=== PATIENT | male | born 1950 | race Two or more races ===

== ENCOUNTER 2018-10-05 22:51 | Inpatient (IN) | payer MEDICARE, MEDICAID ==
[~2018-10-05] VITALS: Ht 177.8 cm; Wt 74.8 kg
--- NOTE | 2018-10-06 00:20 | NUR ---
RN TRAVELING ADMISSION NOTES RECEIVED PATIENT DIRECT ADMIT FROM [facility] VIA [employer]. DX: HYPERKALEMIA. PATIENT IS ALERT AND ORIENTED X3, VERBALLY RESPONSIVE, ABLE TO MAKE NEEDS KNOWN. BREATHING EVEN AND UNLABORED. NO SOB NOTED. ON 2LPM OXYGEN FOR SUPPLEMENT. PER REPORT, PATIENT IS AMBULATORY BUT VERY UNSTEADY, NEEDS ASSISTANCE. URINAL KEPT AT BEDSIDE. CURRENTLY WITH NO COMPLAINTS OF PAIN OR DISCOMFORT. NO FACIAL GRIMACING. IV ON RIGHT FOREARM INTACT AND PATENT. PATIENT NOTED WITH LEFT FOREARM FISTULA - INTACT. SKIN DRY AND WARM TO TOUCH. AFEBRILE. ORIENTED TO THE USE OF UNIT AMENITIES. INSTRUCTED ON THE USE OF CALL LIGHT. INFORMED OF SKIN ASSESSMENT AND PICTURES - AGREED. BELONGINGS ACCOUNTED FOR. ALL OTHER NEEDS MET. SAFETY MEASURES IN PLACE. WILL CONTINUE TO MONITOR.
[2018-10-06 01:00] VITALS: BP 136/75
--- NOTE | 2018-10-06 01:00 | NUR ---
PUBLIC SAFETY TELECOMMUNICATOR NOTES RN AND VISHNU HERBERT HAD DIFFICULTY TURNING PATIENT FOR SKIN ASSESSMENT AND PICTURES DUE TO PATIENT FEELING "WEAK AND TIRED." ALL PICTURES ARE TO PATIENT'S BEST ABILITY.
--- NOTE | 2018-10-06 01:00 | NUR ---
SALES AND SERVICE REPRESENTATIVE NOTES PER PATIENT, HE DOES NOT REMEMBER WHAT MEDICATIONS HE TAKES. HE JUST KNOWS THEY ARE FOR HIS "DIALYSIS" AND BLOOD PRESSURE. PER PATIENT WE CAN ASK HIS . OFFERED TO CALL BUT PER PATIENT, "CALL HER TOMORROW, ITS ALREADY LATE."
--- NOTE | 2018-10-06 01:19 | NUR ---
DRIVING TEACHER NOTES YAZAN HUMPHREY MADE AWARE OF ADMISSION. ALSO INFORMED YAZAN MCCORD THAT PATIENT DOES NOT REMEMBER HIS HOME MEDICATIONS. BS WAS CHECKED = 57. YAZAN MCCORD MADE AWARE AND PER YAZAN MCCORD, HE WILL PUT IN ORDERS. WILL CONTINUE TO MONITOR. Addendum: 10/06/18 at 0138 by LARISSA DYE RN YAZAN MCCORD GAVE VERBAL ORDER TO GIVE D50 IV NOW. WILL CONTINUE TO MONITOR.
[2018-10-06] MEDS ORDERED: MAGNESIUM HYDROXIDE 30 ML UDC PO PRN (01:30)
[2018-10-06] MEDS ORDERED: Z GUARD REMEDY 2 OZ OINT TP PRN (01:30)
[2018-10-06] MEDS ORDERED: DEXTROSE 50%-WATER 50 ML DISP.SYRIN IV PRN (01:30)
[2018-10-06] MEDS ORDERED: MAG HYDROX/AL HYDROX/SIMETH 30 ML UDC PO PRN (01:30)
[2018-10-06] MEDS ORDERED: ACETAMINOPHEN 325 MG TABLET PO PRN (01:30)
[2018-10-06] MEDS ORDERED: ONDANSETRON HCL/PF 4 MG/2 ML VIAL IVP PRN (01:30)
[2018-10-06] MEDS ORDERED: INSULIN REGULAR, HUMAN 100 UNIT/ML 3 ML VIAL SQ PRN (01:30)
[2018-10-06] MEDS ORDERED: DEXTROSE 10% IN WATER 250 ML BAG IV ONE (01:32)
--- NOTE | 2018-10-06 02:00 | NUR ---
CHILDREN LIBRARIAN NOTES PATIENT'S BLOOD SUGAR NOW 81 AFTER D50. PATIENT IS EATING CRACKERS. WILL CONTINUE TO MONITOR.
[2018-10-06 02:21] LABS: BASOPHILS # (AUTO) 0.1 /CMM (0.0-0.2); BASOPHILS % (AUTO) 0.9 % (0.0-2.0); EOSINOPHILS % (AUTO) 0.5 % (0.0-6.0); HEMATOCRIT 35 % (39-51); HEMOGLOBIN 11.3 g/dL (13.5-17.5); LYMPHOCYTES # (AUTO) 0.9 /CMM (0.8-4.8); LYMPHOCYTES % (AUTO) 10.2 % (20.0-44.0); MEAN CORPUSCULAR HGB CONC 32 g/dl (31.0-36.0); MEAN CORPUSCULAR VOLUME 98 fL (80-96); MONOCYTES # (AUTO) 0.7 /CMM (0.1-1.30); MONOCYTES % (AUTO) 8.3 % (2.0-12.0); NEUTROPHILS # (AUTO) 6.9 /CMM (1.8-8.9); NEUTROPHILS % (AUTO) 80.1 % (43.0-81.0); PLATELET COUNT (AUTO) 198 /CMM (150-450); RED BLOOD CELL COUNT(AUTO) 3.59 MIL/uL (4.5-6.0); WHITE BLOOD COUNT (AUTO) 8.6 K/uL (4.3-11.0)
[2018-10-06 02:39] LABS: ALBUMIN 1.5 g/dL (3.4-5.0); BILIRUBIN,DIRECT 0.1 mg/dL (0.0-0.2); BILIRUBIN,TOTAL 0.5 mg/dL (0.2-1.0); CALCIUM, SERUM 8.2 mg/dL (8.5-10.1); POTASSIUM 5.9 mmol/L (3.5-5.1); TOTAL PROTEIN, SERUM 5.5 g/dL (6.4-8.2)
[2018-10-06 02:41] LABS: THYROID STIMULATING HORMONE 12.484 uIU/mL (0.358-3.74)
[2018-10-06 02:44] LABS: CREATININE 12.3 mg/dL (0.6-1.3)
[2018-10-06 02:45] LABS: PHOSPHORUS 9.8 mg/dL (2.5-4.9)
--- NOTE | 2018-10-06 02:55 | NUR ---
MARGARITA MS NOTES PAGED SCHOOL EXAMINER FLEX HUMPHREY TO RELAY CRITICAL RESULTS FOR BUN CREATININE AND PHOS. WAITING FOR CALL BACK. Addendum: 10/06/18 at 0259 by LARISSA DYE RN ERROR: PATIENT IS TELE.
--- NOTE | 2018-10-06 03:20 | NUR ---
JOURNEYMAN GLAZIER NOTES REHABILITATION TEACHER FLEX PAGED BACK. INFORMED OF POTASSIUM, BUN, CREATININE, AND PHOSPHORUS LEVELS. ALSO INFORMED THE BLOOD SUGAR IMPROVED. PER YAZAN MCCORD, NO NEW ORDERS AT THIS TIME. WILL CONTINUE TO MONITOR.
[2018-10-06] MEDS: HYDROCODONE/APAP 5/325MG 1 EACH TABLET PO PRN ×2 (03:48→18:38)
[2018-10-06 04:15] VITALS: BP 132/80
[2018-10-06] MEDS: BLOOD SUGAR DIAGNOSTIC 1 EACH STRIP IN SCH ×4 (06:32→22:12)
--- NOTE | 2018-10-06 06:59 | NUR ---
INDUSTRIAL HYGIENE MANAGER CLOSING NOTES PATIENT RESTING IN BED. NO ACUTE CHANGES THROUGHOUT SHIFT. BREATHING EVEN AND UNLABORED. NO SOB NOTED. ON 2LPM VIA NC. SR 69 ON TELE. CURRENTLY WITH NO COMPLAINTS OF PAIN OR DISCOMFORT. KEPT CLEAN DRY AND COMFORTABLE. ASSISTED WITH REPOSITIONING. ALL OTHER NEEDS MET. SAFETY MEASURES IN PLACE. CALL LIGHT WITHIN REACH. WILL ENDORSE TO ONCOMING NURSE FOR LULI.
--- NOTE | 2018-10-06 07:24 | NUR ---
IRONING PLEATER NOTES CALLED , TRACE, AND LEFT VOICEMAIL TO BRING HOME MEDICATIONS.
--- NOTE | 2018-10-06 07:46 | NUR ---
RN OPENING NOTES RECEIVED PATIENT IN BED RESTING. A/OX3, ABLE TO MAKE NEEDS KNOWN. NOT IN ANY FORM OF DISTRESS, NO SOB. DENIED PAIN OR DISCOMFORT AT THIS TIME. ON TELE SR 69. IV ACCESS INTACT AND PATENT, SALINE LOCKED. KEPT PATIENT SAFE AND COMFORTBALE. BED IN LOW/LOCKED POSITION, SIDERAILS UPX2, CALL LIGHT IN REACH. WILL CONTINUE TO MONITOR ACCORDINGLY.
[2018-10-06] MEDS ORDERED: NIFE90TA38 PO (08:35)
[2018-10-06] MEDS ORDERED: LEVO25TA9 PO (08:35)
[2018-10-06 08:44] VITALS: BP 138/98
--- NOTE | 2018-10-06 09:44 | NUR ---
WOUND CARE CONSULT: PT PRESENTS WITH SACRAL SCAR AND SKIN STAINING/DISCOLORATION TO BUTTOCKS, RT HEEL INTACT DEEP TISSUE INJURY AND LEFT HEEL SCAR WITH SCARRING TO ANKLE, PRESENT ON ADMISSION. RECOMMEND DPM CONSULT. DR MORE NOTIFIED OF CONSULT REQUEST. RECOMMENDATIONS MADE FOR SKIN PROTECTION. DISCUSSED WITH NURSING STAFF. DEFER TO DPM FOR WOUND TREATMENT PLAN OF LOWER EXTREMITIES. WILL SEE PRN. CURRENT SIMRAN SCORE IS 15. PT IS VERY THIN AND BONY. IN AGREEMENT WITH PLAN OF CARE. Addendum: 10/06/18 at 0948 by MIRIAN DAVILA WNDNU Amended: Links added.
[2018-10-06] MEDS: HYDROCODONE/APAP 10/325MG 1 EA TABLET PO PRN ×3 (09:46→22:11)
[2018-10-06] MEDS ORDERED: SODIUM POLYSTYRENE SULFONATE 15 G/60 ML BOTTLE PO ONE (10:30)
[2018-10-06] MEDS: LEVOTHYROXINE SODIUM 25 MCG TABLET PO SCH (11:37)
[2018-10-06] MEDS: SEVELAMER CARBONATE 0.8 GM POWD.PACK PO SCH ×2 (12:37→18:03)
[2018-10-06] MEDS ORDERED: BUME1TAB8 PO (14:59)
[2018-10-06] MEDS ORDERED: LOSA100T31 PO (14:59)
[2018-10-06] MEDS ORDERED: SEVE800T8 PO (14:59)
[2018-10-06] MEDS ORDERED: TERA2CAP4 PO (14:59)
[2018-10-06] MEDS ORDERED: AMLO10TA4 PO (14:59)
[2018-10-06] MEDS ORDERED: PARO20TA7 PO (14:59)
[2018-10-06] MEDS ORDERED: CLON0.5T12 PO (14:59)
[2018-10-06] MEDS ORDERED: ASPI-605 PO (14:59)
[2018-10-06] MEDS ORDERED: HYDR-4384 PO (15:01)
[2018-10-06] MEDS ORDERED: PANT40TA4 PO (15:01)
--- NOTE | 2018-10-06 17:00 | NUR ---
HEMODIALYSIS DONE, 1.5 L OUTPUT, PATIENT TOLERATED WELL.
[2018-10-06 18:00] VITALS: BP 129/87
--- NOTE | 2018-10-06 18:38 | NUR ---
MS RN NOTE ADMINISTERED NORCO 5-325MG ORDERED FOR PAIN 7/10 OF THE LEFT SHOULDER. BP 138/65, HR 84.
--- NOTE | 2018-10-06 19:00 | NUR ---
RN CLOSING NOTES PATIENT IN STABLE CONDITION. ALL NEEDS ATTENDED AND PROVIDED. ALL DUE MEDICATIONS ADMINISTERED ORDERED. ASSISTED WITH ADLS. KEPT PATIENT SAFE AND COMFORTABLE. BED IN LOW/LOCKED POSITION, SIDERAILS UPX2, CALL LIGHT IN REACH. ENDORSED TO NIGHT RN FOR LULI.
--- NOTE | 2018-10-06 19:30 | NUR ---
TELERN FULLY AWAKE, RESTING QUIETLY, LESS PAIN ON SHOULDERS FROM NORCO GIVEN EARLIER. BEDREST FOR NOW. REMINDED TO CALL STAFF FOR ANY ASSISTANCE OF FURTHER DISCOMFORT, CALL LIGHT WITHIN REACH. SAFETY PRECAUTIONS EMPHASIZED, APPEARS TO UNDERSTAND.
[2018-10-06 20:00] VITALS: BP 142/83
--- NOTE | 2018-10-06 20:39 | NUR ---
TELERN FULLY AWAKE, ARTERIAL DOPPLER TEST ON PROGRESS. TO CONTINUE.
[2018-10-06 20:44] VITALS: BP 142/83
[2018-10-06] MEDS: TERAZOSIN HCL 1 MG CAPSULE PO SCH (22:01)
--- NOTE | 2018-10-06 22:30 | NUR ---
TELERN BS 102, NO COVERAGE. SNACKS PROVIDED. WAS VERBALIZING PAIN ON RIGHT SHOULDER, STATED ARTHRITIC PAIN, NORCO 1 TAB PO ADMINISTERED ORDERED. BEDREST FOR NOW.
[2018-10-07] VITALS: BP_SYST 132; BP_DIAS 77; BP_DIAS 88
[2018-10-07 04:00] VITALS: BP 141/82
[2018-10-07] MEDS: BLOOD SUGAR DIAGNOSTIC 1 EACH STRIP IN SCH ×4 (06:08→22:34)
--- NOTE | 2018-10-07 07:00 | NUR ---
TELERN BS WAS 57. ENDORSED TO INCOMING RN FOR CONTINUITY OF CARE
--- NOTE | 2018-10-07 07:15 | NUR ---
RN INITIAL NOTES PATIENT IN BED, ASLEEP BUT EASILY AROUSABLE. ALERT AND ORIENTED X3. ON TELE MONITOR SR. ON ROOM AIR, NO COMPLAINS OF ANY SOB NOR PAIN. HAS A RIGHT FA #20 AND LEFT FA FISTULA. HD YESTERDAY 1.5L OUT. PER NOC SHIFT RN, BS IS 57 THIS AM. PATIENT WAS GIVEN ORANGE JUICE, WILL RECHECK AGAIN LATER. PENDING XRAY OF BILATERAL FEET TODAY AND CONSULT FROM DR ULI BAH. BED LOCKED AND IN LOWEST POSITION. CALL LIGHT WITHIN REACH. WILL CONTINUE TO MONITOR CLOSELY
[2018-10-07 07:53] LABS: BASOPHILS % (AUTO) 0.4 % (0.0-2.0); EOSINOPHILS % (AUTO) 0.8 % (0.0-6.0); HEMATOCRIT 35 % (39-51); HEMOGLOBIN 11.2 g/dL (13.5-17.5); LYMPHOCYTES # (AUTO) 0.7 /CMM (0.8-4.8); LYMPHOCYTES % (AUTO) 7.2 % (20.0-44.0); MEAN CORPUSCULAR HGB CONC 32 g/dl (31.0-36.0); MEAN CORPUSCULAR VOLUME 99 fL (80-96); MONOCYTES # (AUTO) 0.6 /CMM (0.1-1.30); MONOCYTES % (AUTO) 6.9 % (2.0-12.0); NEUTROPHILS # (AUTO) 7.7 /CMM (1.8-8.9); NEUTROPHILS % (AUTO) 84.7 % (43.0-81.0); PLATELET COUNT (AUTO) 156 /CMM (150-450); RED BLOOD CELL COUNT(AUTO) 3.56 MIL/uL (4.5-6.0); WHITE BLOOD COUNT (AUTO) 9.1 K/uL (4.3-11.0)
[2018-10-07 08:00] VITALS: BP 131/63
[2018-10-07] MEDS: LEVOTHYROXINE SODIUM 25 MCG TABLET PO SCH (08:01)
[2018-10-07] MEDS: SEVELAMER CARBONATE 0.8 GM POWD.PACK PO SCH ×4 (08:01→17:48)
[2018-10-07 08:10] LABS: CALCIUM, SERUM 8.2 mg/dL (8.5-10.1); POTASSIUM 5.4 mmol/L (3.5-5.1)
[2018-10-07 08:16] LABS: CREATININE 10.7 mg/dL (0.6-1.3)
[2018-10-07] MEDS: BUMETANIDE (1 MG) 1 MG TABLET PO SCH ×2 (08:27→17:45)
[2018-10-07] MEDS: LOSARTAN POTASSIUM 50 MG TABLET PO SCH (08:27)
[2018-10-07] MEDS: AMLODIPINE BESYLATE 10 MG TABLET PO SCH (08:28)
[2018-10-07] MEDS: NIFEdipine XL (30MG) 30 MG TAB PO SCH (08:28)
[2018-10-07] MEDS: clonazePAM 0.5 MG TABLET PO SCH ×2 (08:28→17:45)
[2018-10-07] MEDS: DAKINS QUARTER STRENGTH (0.125%) 480 ML BOTTLE TOP SCH (08:29)
[2018-10-07] MEDS ORDERED: ASPIRIN EC 81 MG TABLET.DR PO SCH (09:00)
[2018-10-07] MEDS ORDERED: PAROXETINE HCL 20 MG TABLET PO SCH (09:00)
[2018-10-07] MEDS: HYDROCODONE/APAP 10/325MG 1 EA TABLET PO PRN ×2 (10:53→16:04)
[2018-10-07] MEDS ORDERED: LEVOFLOXACIN (500MG) 500 MG TABLET PO SCH (12:00)
--- NOTE | 2018-10-07 12:30 | NUR ---
RN NOTES HEMODIALYSIS AT THIS TIME
--- NOTE | 2018-10-07 13:53 | NUR ---
RN NOTES PATIENT WAS SEEN BY PT. PER PT, PATIENT REFUSED TO TAKE A FEW STEPS AND JUST SAT AT THE EDGE OF THE BED Addendum: 10/07/18 at 1355 by LEMUEL MUNIZ RN PT AT 1030
[2018-10-07 16:00] VITALS: BP 87/67
--- NOTE | 2018-10-07 16:00 | NUR ---
RN NOTES PATIENT REFUSED TO HAVE HIS WOUND CARE DONE.
--- NOTE | 2018-10-07 19:05 | NUR ---
MS RN NOTES RECEIVED PT IN BED AWAKE AND ABLE TO MAKE NEEDS KNOWN. PT A/O X3. RESPIRATIONS EVEN AND UNLABORED WITH NO S/S OF ACUTE DISTRESS OR SOB NOTED. PT WITH RIGHT FA #20 PATENT AND INTACT AND LEFT FA FISTULA. NO COMPLAINTS OF PAIN AT THIS TIME. SAFETY MEASURES IN PLACE WITH BED IN LOWEST LOCKED POSITION WITH SIDE RAILS UP X2. CALL LIGHT WITHIN REACH. WILL CONTINUE TO MONITOR.
--- NOTE | 2018-10-07 19:40 | NUR ---
RN CLOSING NOTES PATIENT IN BED, ASLEEP BUT EASILY AROUSABLE. TOOK ALL HIS MEDS. DIALYSIS TODAY, NO OUTPUT. AFEBRILE THROUGHOUT THE SHIFT. DAUGHTER AND CAME TO VISIT AND WANTED TO TALK TO THE COLOR FINISHER. COMPLAINED OF RIGHT SHOULDER PAIN TODAY. LAST NORCO GIVEN AT 1600. PT REFUSED TO HAVE HIS WOUND CARE DONE. PATIENT SAT ON THE CHAIR WITH THE HELP OF THE ICE MAKER. ENDORSED TO NOC SHIFT FOR LULI
[2018-10-07 20:00] VITALS: BP_SYST 113; BP_SYST 95; BP_DIAS 42; BP_DIAS 76
[2018-10-07 20:34] VITALS: BP_SYST 113; BP_SYST 115; BP_DIAS 72; BP_DIAS 76
[2018-10-07] MEDS: TERAZOSIN HCL 1 MG CAPSULE PO SCH (22:35)
[2018-10-08] VITALS (41 sets, daily range): BP systolic 96–135; BP diastolic 48–76
[2018-10-08] MEDS: HYDROCODONE/APAP 10/325MG 1 EA TABLET PO PRN (02:19)
--- NOTE | 2018-10-08 06:50 | NUR ---
RT CODE BLUE CALLED. BEGAN MANUALLY BAGGING WITH 100% FiO2. PT INTUBATED BY DR. BROCK WITH 7.0 ETT SECURED AT 23CM AT THE LIP. POSITIVE COLOR CHANGE. BILATERAL BREATH SOUNDS ON AUSCULTATION. NO SIGNS OF DISTRESS NOTED AT THIS TIME. WILL CONTINUE TO MONITOR THE PATIENT.
--- NOTE | 2018-10-08 07:00 | NUR ---
MS RN NOTES PT TRANSFERRED TO ICU ROOM 258 REPORT GIVEN TO NURSE AT BEDSIDE.
[2018-10-08] MEDS: BLOOD SUGAR DIAGNOSTIC 1 EACH STRIP IN SCH ×4 (07:54→23:49)
[2018-10-08] MEDS ORDERED: IV D5W 1,000 ML IV ONE (08:00)
[2018-10-08] MEDS: SEVELAMER CARBONATE 0.8 GM POWD.PACK PO SCH ×3 (08:02→17:28)
[2018-10-08] MEDS: LEVOTHYROXINE SODIUM 25 MCG TABLET PO SCH (08:02)
[2018-10-08] MEDS: BUMETANIDE (1 MG) 1 MG TABLET PO SCH ×2 (08:03→17:28)
[2018-10-08 08:12] LABS: CALCIUM, SERUM 7.8 mg/dL (8.5-10.1); POTASSIUM 5.1 mmol/L (3.5-5.1)
[2018-10-08] MEDS: ASPIRIN 81 MG TAB.CHEW PO SCH (08:15)
[2018-10-08 08:17] LABS: CREATININE 8.8 mg/dL (0.6-1.3)
[2018-10-08 08:34] LABS: ABG BASE EXCESS 1.5 mmol/L; ABG OXYGEN SATURATION 96.8 % (92.0-98.5); ABG PH 7.346 (7.350-7.450); ABG PO2 104.4 mmHg (75.0-100.0); AaDO2 556.6 mmHg; COHb 0.5 % (0.5-1.5); MetHb 0.7 % (0.0-1.5); O2Hb 95.6 % (94.0-97.0); PEEP,BG 0 cm H2O; SITE, ABG Right Brachial; VT, ABG 500 mL
--- NOTE | 2018-10-08 08:48 | NUR ---
notified dr ga of patient troponin. per md please start patient on heparin gtt
[2018-10-08] MEDS: NIFEdipine XL (30MG) 30 MG TAB PO SCH (08:49)
[2018-10-08] MEDS: AMLODIPINE BESYLATE 10 MG TABLET PO SCH (08:49)
[2018-10-08] MEDS: clonazePAM 0.5 MG TABLET PO SCH (08:51)
--- NOTE | 2018-10-08 08:54 | NUR ---
DR HORVATH AT BEDSIDE. PATIENT AWAKE AND ALERT FOLLOWING COMMANDS. MD SHOWN ABG. PER MD PLEASE TITRATE FIO2 TO 50% AND HOLD OFF ON SEDATION AT THIS TIME PATIENT IS CLAM AND COOPERATIVE
[2018-10-08] MEDS: LOSARTAN POTASSIUM 50 MG TABLET PO SCH (09:00)
--- NOTE | 2018-10-08 09:12 | NUR ---
MS RN NOTES 0600 - PTS VITALS CHECKED AND IN STABLE CONDITION 0634 - WALK TO PT AND PT FOUND UNRESPONSIVE WITH NO PULSE GREY IRON MOLDER NOTIFIED CHARGE NURSE 0635 - CODE BLUE CALLED CPR STARTED 0640 - RAPID RESPONSE TEAM ARRIVED AND TOOK OVER 0643 - BLOOD SUGAR CHECK - 19 0644 - D50 GIVEN VIA IV 0648 - BS RECHECK 104 0650 - PT TRANSFERRED TO ICU 258
[2018-10-08] MEDS: DAKINS QUARTER STRENGTH (0.125%) 480 ML BOTTLE TOP SCH (09:23)
[2018-10-08] MEDS ORDERED: HEPARIN SODIUM, PORCINE 5000 UNITS/1 ML VIAL IV ONE (09:30)
[2018-10-08] MEDS ORDERED: HEPARIN INFUSION/D5W 500 ML IV PRN (09:30)
--- NOTE | 2018-10-08 09:45 | NUR ---
PER MD PLEASE HAVE PATIENT TRY SIMV 50% 07/14/PRESSURE SUPPORT 5
[2018-10-08] MEDS: IPRATROPIUM NEB FS 0.5 MG/2.5 ML AMPUL.NEB NEB SCH ×3 (10:00→19:21)
[2018-10-08] MEDS ORDERED: clonazePAM 0.5 MG TABLET PO PRN (10:00)
--- NOTE | 2018-10-08 10:15 | NUR ---
PER DR HORVATH PLEASE GET ABG. PATIENT TOLERATING SIMV SATURATING 98% NO S/S DISTRESS NOTED. NO SOB DIFFICULTY BREATHING
[2018-10-08] MEDS ORDERED: ETOMIDATE 2 MG/ML VIAL IV ONE (10:45)
[2018-10-08] MEDS ORDERED: ROCURONIUM BROMIDE 50 MG/5 ML IV ONE (10:45)
[2018-10-08] MEDS ORDERED: FEE EMEERGENCY 1 MIN EA MC ONE (10:46)
--- NOTE | 2018-10-08 10:50 | NUR ---
NOTIFIED DR HORVATH OF PATIENT UPDATED ABG. PER MD ORDER PLACE PATIENT BACK ON AC MODE FI02 50% AND START PATIENT ON SEDATION DIPRIVAN PER PROTOCOL
[2018-10-08 10:54] LABS: ABG BASE EXCESS 1.9 mmol/L; ABG OXYGEN SATURATION 91.7 % (92.0-98.5); ABG PH 7.327 (7.350-7.450); ABG PO2 70.3 mmHg (75.0-100.0); AaDO2 223.2 mmHg; COHb 0.4 % (0.5-1.5); MetHb 0.7 % (0.0-1.5); O2Hb 90.7 % (94.0-97.0); PEEP,BG 5 cm H2O; SITE, ABG Right Radial
[2018-10-08] MEDS: PROPOFOL 100 ML IV PRN ×2 (11:07→19:01)
[2018-10-08] MEDS: PAROXETINE HCL 10 MG TABLET PO SCH (12:13)
[2018-10-08 13:07] LABS: BASOPHILS # (AUTO) 0.1 /CMM (0.0-0.2); BASOPHILS % (AUTO) 0.8 % (0.0-2.0); HEMATOCRIT 33 % (39-51); HEMOGLOBIN 10.2 g/dL (13.5-17.5); LYMPHOCYTES # (AUTO) 1.6 /CMM (0.8-4.8); LYMPHOCYTES % (AUTO) 17.5 % (20.0-44.0); MEAN CORPUSCULAR HGB CONC 31 g/dl (31.0-36.0); MEAN CORPUSCULAR VOLUME 101 fL (80-96); MONOCYTES # (AUTO) 0.7 /CMM (0.1-1.30); NEUTROPHILS # (AUTO) 6.9 /CMM (1.8-8.9); NEUTROPHILS % (AUTO) 73.7 % (43.0-81.0); PLATELET COUNT (AUTO) 174 /CMM (150-450); RED BLOOD CELL COUNT(AUTO) 3.23 MIL/uL (4.5-6.0); WHITE BLOOD COUNT (AUTO) 9.3 K/uL (4.3-11.0)
[2018-10-08] MEDS: PIPERACILLIN /TAZOBACTAM 2.25 G in IV D5W 50 ML IV SCH ×2 (14:36→21:34)
[2018-10-08] MEDS ORDERED: DEXTROSE 50%-WATER 50 ML DISP.SYRIN IV ONE (15:51)
--- NOTE | 2018-10-08 17:00 | NUR ---
spoke with dr ga and notified patient HR in the 40's to 50's, appears junctional at times and sinus tramaine with pac's. dr ga shown patient ekg. per md continue with hep gtt no new orders.
--- NOTE | 2018-10-08 18:21 | NUR ---
PTT 45.4. PER ORDER INCREASING RATE UP 150U/HOUR TO 1250. NEXT PTT 1220
--- NOTE | 2018-10-08 19:15 | NUR ---
per adelfo please continue ad5w gtt at 50ml/hour. care endorsed to jude for vani. patient tolerating vent settings without distress. sedated and comfortable. skin, safety, aspiration precautions in place and monitored
[2018-10-08] MEDS ORDERED: IV D5W 1,000 ML IV PRN (19:30)
[2018-10-08] MEDS ORDERED: DEXTROSE 50%-WATER 50 ML DISP.SYRIN IV PRN (19:30)
--- NOTE | 2018-10-08 19:30 | NUR ---
ICU/RN RECEIVED PT ON VENT VIA ORAL ETT,ON DIPRIVAN DRIP AT 15MCG/KG/MIN.FOLLOWS SIMPLE COMMANDS.ON HEPARIN DRIP AT 1250 UNITS/HR.D5W AT 75ML/HR.
[2018-10-08] MEDS: IV D5W 1,000 ML IV PRN (19:38)
--- NOTE | 2018-10-08 21:07 | NUR ---
RT NOTE PT RCVD ORALLY INTUBATED 7.0 ETT @ 23CM AT LIPS ON MECHANICAL VENT WITH CHARTED SETTINGS. PT SEEMA TX WELL. SX DONE. VENT PLUGGED INTO RED OUTLET. ALARMS ARE ON AND AUDIBLE. AMBU BAG AT BEDSIDE. Addendum: 10/08/18 at 2110 by LUCIA DRAKE RT Amended: Links added.
[2018-10-08] MEDS: TERAZOSIN HCL 1 MG CAPSULE PO SCH (21:52)
--- NOTE | 2018-10-08 22:00 | NUR ---
ICU/RN VS STABLE.MONITOR SR-SB.
--- NOTE | 2018-10-08 22:30 | NUR ---
ICU/RN RT DECREASED FO2 TO 40% PT MAINTAINS 100% SATURATION.
[2018-10-09] VITALS (43 sets, daily range): BP systolic 113–148; BP diastolic 53–87
[2018-10-09] MEDS: IPRATROPIUM NEB FS 0.5 MG/2.5 ML AMPUL.NEB NEB SCH ×4 (00:51→20:02)
--- NOTE | 2018-10-09 04:00 | NUR ---
ICU/RN SUCTIONED FOR SCANT AMT.THICK TO THIN BEIGE SECRETIONS.COMPLETE BED BATH DONE & LINEN CHANGED.
[2018-10-09 04:43] LABS: BASOPHILS % (AUTO) 0.2 % (0.0-2.0); HEMATOCRIT 28 % (39-51); HEMOGLOBIN 8.2 g/dL (13.5-17.5); LYMPHOCYTES # (AUTO) 0.4 /CMM (0.8-4.8); LYMPHOCYTES % (AUTO) 6.3 % (20.0-44.0); MEAN CORPUSCULAR HGB CONC 29 g/dl (31.0-36.0); MEAN CORPUSCULAR VOLUME 111 fL (80-96); MONOCYTES # (AUTO) 0.4 /CMM (0.1-1.30); MONOCYTES % (AUTO) 5.3 % (2.0-12.0); NEUTROPHILS % (AUTO) 87.2 % (43.0-81.0); PLATELET COUNT (AUTO) 97 /CMM (150-450); RED BLOOD CELL COUNT(AUTO) 2.55 MIL/uL (4.5-6.0); WHITE BLOOD COUNT (AUTO) 6.9 K/uL (4.3-11.0)
[2018-10-09 05:06] LABS: BILIRUBIN,TOTAL 0.3 mg/dL (0.2-1.0); CREATININE 7.2 mg/dL (0.6-1.3); MAGNESIUM 1.5 mg/dL (1.8-2.4); PHOSPHORUS 6.5 mg/dL (2.5-4.9); POTASSIUM 3.7 mmol/L (3.5-5.1); TOTAL PROTEIN, SERUM 3.4 g/dL (6.4-8.2)
--- NOTE | 2018-10-09 05:24 | NUR ---
ICU/RN VERY ABNORMAL LABS REPORTED BY LAB.D5W HELD FOR NOW, LAB REDRAWN AT 0600.SEE LAB RESULTS.D5W RESTARTED./ FINGER STICK BLOOD SUGAR OF 97MG/DL.LAB RESULT =130MG/DL.D5W RESTARTED PREVIOUSLY ORDERED.
[2018-10-09 05:25] LABS: ALBUMIN 0.7 g/dL (3.4-5.0); CALCIUM, SERUM 5.5 mg/dL (8.5-10.1)
[2018-10-09 05:42] LABS: LYMPHOCYTES % (MANUAL) 5 % (16-48); NEUTROPHILS % (MANUAL) 92 (42-76)
[2018-10-09 05:43] LABS: MONOCYTES % (MANUAL) 3 % (0-11.0)
[2018-10-09] MEDS: PIPERACILLIN /TAZOBACTAM 2.25 G in IV D5W 50 ML IV SCH ×3 (05:46→21:15)
[2018-10-09 06:04] LABS: BASOPHILS # (AUTO) 0.1 /CMM (0.0-0.2); BASOPHILS % (AUTO) 0.7 % (0.0-2.0); EOSINOPHILS % (AUTO) 1.1 % (0.0-6.0); HEMATOCRIT 33 % (39-51); HEMOGLOBIN 10.9 g/dL (13.5-17.5); LYMPHOCYTES # (AUTO) 0.4 /CMM (0.8-4.8); LYMPHOCYTES % (AUTO) 4.6 % (20.0-44.0); MEAN CORPUSCULAR HGB CONC 33 g/dl (31.0-36.0); MEAN CORPUSCULAR VOLUME 97 fL (80-96); MONOCYTES # (AUTO) 0.2 /CMM (0.1-1.30); MONOCYTES % (AUTO) 2.5 % (2.0-12.0); NEUTROPHILS # (AUTO) 8.4 /CMM (1.8-8.9); NEUTROPHILS % (AUTO) 91.1 % (43.0-81.0); PLATELET COUNT (AUTO) 148 /CMM (150-450); RED BLOOD CELL COUNT(AUTO) 3.43 MIL/uL (4.5-6.0); WHITE BLOOD COUNT (AUTO) 9.2 K/uL (4.3-11.0)
[2018-10-09 06:09] LABS: CALCIUM, SERUM 6.9 mg/dL (8.5-10.1); MAGNESIUM 1.8 mg/dL (1.8-2.4); POTASSIUM 4.4 mmol/L (3.5-5.1)
[2018-10-09 06:14] LABS: ALBUMIN 1.2 g/dL (3.4-5.0)
[2018-10-09] MEDS: BLOOD SUGAR DIAGNOSTIC 1 EACH STRIP IN SCH ×3 (06:17→18:03)
--- NOTE | 2018-10-09 07:15 | NUR ---
RECEIVED PATIENT. ETT WITH VENT SETTINGS PER MD ORDER AND TOLERATING WELL. NO SOB, DIFFICULTY BREATHING. PROPOFOL GTT PER ORDER (SEE SPREADSHEET) AND LIGHTLY SEDATED MOVES TO LOCALIZED PAIN. NO S/S DISTRESS AT THIS TIME. IVF PER ORDER. SKIN, SAFETY, ASPIRATION PRECAUTIONS IN PLACE AND WILL MONITOR.
[2018-10-09] MEDS: PROPOFOL 100 ML IV PRN (07:37)
[2018-10-09] MEDS ORDERED: DC PROPOFOL WHEN EXTUBATED XX PRN (08:00)
[2018-10-09] MEDS: SEVELAMER CARBONATE 0.8 GM POWD.PACK PO SCH ×3 (08:02→18:00)
[2018-10-09] MEDS: ASPIRIN 81 MG TAB.CHEW PO SCH (08:03)
[2018-10-09] MEDS: AMLODIPINE BESYLATE 10 MG TABLET PO SCH ×2 (08:03→14:40)
[2018-10-09] MEDS: PAROXETINE HCL 10 MG TABLET PO SCH (08:03)
[2018-10-09] MEDS: BUMETANIDE (1 MG) 1 MG TABLET PO SCH ×2 (08:03→17:00)
[2018-10-09] MEDS: LEVOTHYROXINE SODIUM 25 MCG TABLET PO SCH (08:03)
[2018-10-09] MEDS: DAKINS QUARTER STRENGTH (0.125%) 480 ML BOTTLE TOP SCH (08:04)
--- NOTE | 2018-10-09 08:10 | NUR ---
HEPARIN GTT STOPPED PER MD NIETO ORDER ORDER
--- NOTE | 2018-10-09 08:30 | NUR ---
PER DR HORVATH PLEASE HAVE PATIENT COMPLETE A SIMV TRIAL. RATE 4/PSV 12/ PEEP 5
--- NOTE | 2018-10-09 08:40 | NUR ---
RT PLACE PT ON SIMV 4, 500, PSV 15, 40%, +5 PER MD ORDER. ABG IN AN HOUR. RN AWARE AND NOTIFIED.
[2018-10-09] MEDS: NIFEdipine XL (30MG) 30 MG TAB PO SCH (09:00)
[2018-10-09 09:58] LABS: ABG OXYGEN SATURATION 95.1 % (92.0-98.5); ABG PCO2 45.5 mmHg (35.0-45.0); ABG PH 7.368 (7.350-7.450); ABG PO2 85.1 mmHg (75.0-100.0); AaDO2 147.8 mmHg; COHb 0.5 % (0.5-1.5); MetHb 0.3 % (0.0-1.5); O2Hb 94.3 % (94.0-97.0); PEEP,BG 5 cm H2O; SITE, ABG Right Brachial; VT, ABG 500 mL
[2018-10-09] MEDS ORDERED: Magnesium 1GM/D5W 100ML PREMIX 100 ML IV SCH (10:00)
--- NOTE | 2018-10-09 10:00 | NUR ---
RT POST ABG RESULTS SHOWN TO DR. HORVATH. DR HORVATH ORDERED TO EXTUBATE THE PT. ALINA AVILA NOTIFIED AND AWARE.
--- NOTE | 2018-10-09 10:00 | NUR ---
PER DR HORVATH EXTUBATE PATIENT. RT AWARE AND AT BEDSIDE
[2018-10-09] MEDS: HEPARIN SODIUM, PORCINE 5000 UNITS/1 ML VIAL SQ SCH ×2 (10:04→21:17)
--- NOTE | 2018-10-09 10:10 | NUR ---
RT PT EXTUBATED PER MD ORDER. RN AWARE. PLACED PT ON 2 LPM VIA NC. SpO2 99%, HR 72. PT ABLE TO VERBALIZE. NO SOB OR SIGNS OF DISTRESS NOTED AT THIS TIME. WILL CONTINUE TO MONITOR THE PATIENT FOR ANY CHANGES.
[2018-10-09] MEDS: HYDROCODONE/APAP 10/325MG 1 EA TABLET PO PRN (10:49)
--- NOTE | 2018-10-09 10:50 | NUR ---
PATIENT AWAKE AND ALERT X3 TOLERATING 2L NC WITHOUT SOB OR DIFFICULTY BREATHING. NORCO GIVEN THROUGH NG TUBE S/T 10/ BACK PAIN AND CHEST WALL PAIN S/P CPR. NG TUBE REMOVED PER REQUEST AND PENDING SWALLOW EVAL. PATIENT APPEARS STABLE AT THIS TIME; PENDING HD THIS AM. NO S/S ACUTE DISTRESS NOTED
[2018-10-09] MEDS: IV D5W 1,000 ML IV PRN (11:51)
[2018-10-09] MEDS: LOSARTAN POTASSIUM 50 MG TABLET PO SCH (14:40)
--- NOTE | 2018-10-09 19:00 | NUR ---
PATIENT TOLERATING LOW FLOW 02, CLEAR AIRWAY. AT BASELINE MENTAL STATUS PER FAMILY. TOLERATED HD TODAY WITH 1L OUT. SKIN, SAFETY, ASPIRATION PRECAUTIONS IN PLACE AND MONITORED THROUGHOUT THE DAY. ALL NEEDS ASSESSED AND MET. CARE ENDORSED TO MARGARITA GUEVARA FOR LULI
--- NOTE | 2018-10-09 19:40 | NUR ---
RN NOTES RECEIVED PT AWAKE ON BED. AOX3. EXTUBATED THIS MORNING. BREATHING EVEN AND UNLABORED ON O2 4LPM VIA NC . FULL CODE NO ISOLATION. NSR ON TELE MONITOR WITH OCCASIONAL PVC'S. IV SITE ON RIGHT WRIST G 20 WITH D5W @ 75 ML/HR S/P HEPARIN DRIP C/D/I. KEPT PT CLEAN AND DRY. T/R FOR SKIN MANAGEMENT . BED LOCKED AND IN LOWEST POSSIBLE POSITION. WILL CONTINUE TO MONITOR.
[2018-10-09] MEDS: TERAZOSIN HCL 1 MG CAPSULE PO SCH (21:18)
[2018-10-10] VITALS (31 sets, daily range): BP systolic 91–204; BP diastolic 45–96
[2018-10-10] MEDS: BLOOD SUGAR DIAGNOSTIC 1 EACH STRIP IN SCH ×4 (00:18→17:50)
[2018-10-10] MEDS: IPRATROPIUM NEB FS 0.5 MG/2.5 ML AMPUL.NEB NEB SCH ×4 (01:28→19:48)
[2018-10-10] MEDS: IV D5W 1,000 ML IV PRN ×2 (03:45→20:36)
[2018-10-10 05:15] LABS: BASOPHILS % (AUTO) 0.5 % (0.0-2.0); EOSINOPHILS % (AUTO) 0.4 % (0.0-6.0); HEMATOCRIT 33 % (39-51); HEMOGLOBIN 10.7 g/dL (13.5-17.5); LYMPHOCYTES # (AUTO) 0.7 /CMM (0.8-4.8); LYMPHOCYTES % (AUTO) 7.1 % (20.0-44.0); MEAN CORPUSCULAR HGB CONC 33 g/dl (31.0-36.0); MEAN CORPUSCULAR VOLUME 99 fL (80-96); MONOCYTES # (AUTO) 0.5 /CMM (0.1-1.30); MONOCYTES % (AUTO) 5.1 % (2.0-12.0); NEUTROPHILS # (AUTO) 8.2 /CMM (1.8-8.9); NEUTROPHILS % (AUTO) 86.9 % (43.0-81.0); PLATELET COUNT (AUTO) 148 /CMM (150-450); RED BLOOD CELL COUNT(AUTO) 3.31 MIL/uL (4.5-6.0); WHITE BLOOD COUNT (AUTO) 9.4 K/uL (4.3-11.0)
[2018-10-10 05:33] LABS: CALCIUM, SERUM 7.6 mg/dL (8.5-10.1); CREATININE 7.3 mg/dL (0.6-1.3); MAGNESIUM 1.8 mg/dL (1.8-2.4); POTASSIUM 5.2 mmol/L (3.5-5.1)
[2018-10-10] MEDS: PIPERACILLIN /TAZOBACTAM 2.25 G in IV D5W 50 ML IV SCH ×3 (06:08→21:29)
--- NOTE | 2018-10-10 07:00 | NUR ---
RN NOTES PATIENT REMAINED STABLE. NO RESPIRATORY DISTRESS. AFEBRILE. VSS. TOLERATED O2 4LPM VIA NC. SATURATION >92%. INCONTINENT CARE PROVIDED. ALL DUE MEDS ADMINISTERED AND TOLERATED WELL. NO ASPIRATION PRESENT. LATEST BS - 64 MG/DL OFFERED AND DRINK ORANGE JUICE TO INCREASE GIVE A LITTLE BIT OF SUGAR. NO SIGNIFICANT CHANGES THROUGHOUT THE SHIFT. ENDORSED CONTINUITY OF CARE TO AM NURSE.
--- NOTE | 2018-10-10 07:34 | NUR ---
ECHO REPORTS IS DONE AWAITING FOR REPORT TO CROSS OVER TO [facility].
[2018-10-10] MEDS: SEVELAMER CARBONATE 0.8 GM POWD.PACK PO SCH ×3 (08:00→17:56)
[2018-10-10] MEDS: LEVOTHYROXINE SODIUM 25 MCG TABLET PO SCH (08:00)
[2018-10-10] MEDS: DAKINS QUARTER STRENGTH (0.125%) 480 ML BOTTLE TOP SCH (08:57)
[2018-10-10] MEDS: ASPIRIN 81 MG TAB.CHEW PO SCH (09:00)
[2018-10-10] MEDS: ACETYLCYSTEINE 10% SOLN 400 MG/4 ML VIAL NEB SCH ×2 (09:00→15:13)
[2018-10-10] MEDS: HEPARIN SODIUM, PORCINE 5000 UNITS/1 ML VIAL SQ SCH ×2 (10:22→20:28)
[2018-10-10] MEDS: BUMETANIDE (1 MG) 1 MG TABLET PO SCH ×2 (10:33→17:55)
[2018-10-10] MEDS: hydrALAZINE HCL 50 MG TABLET PO SCH ×3 (10:34→17:56)
[2018-10-10] MEDS: AMLODIPINE BESYLATE 10 MG TABLET PO SCH (10:36)
[2018-10-10] MEDS: NIFEdipine XL (30MG) 30 MG TAB PO SCH (10:36)
[2018-10-10] MEDS: PAROXETINE HCL 10 MG TABLET PO SCH ×2 (10:37→18:02)
--- NOTE | 2018-10-10 16:00 | NUR ---
pt now on simple mask, sat 98% becuse of shallow breathing/ pt bs now 84 and pt eating a b8it more as the day goes by //pt says is depressed and encouraged pt to take his paxil/he agreed//took pm meds//mw
[2018-10-10] MEDS: INSULIN REGULAR, HUMAN 100 UNIT/ML 3 ML VIAL SQ PRN ×2 (16:58→17:52)
--- NOTE | 2018-10-10 18:50 | NUR ---
pt recieved on nc 5l, pt right arm edematous, pt denies pain at iv site, good blood return, pt had iv there at different site maybe infiltrated/pt bp stable, pt doesnt want breakfast, refused meds, md aware, pt breath sounds clear all lobes buit pt states hurts to breathe in good because he is sore fcrom cpr yesterday/pt encouraged to deep breathe each hour and given i.s./pt bs stable now//mw
--- NOTE | 2018-10-10 19:15 | NUR ---
ICU/RN RECEIVED PT AWAKE ALERT C/O SHORTNESS OF BREATH,PT ON 10L SIMPLE MASK W/SAT 93% RESP SHALLOW,WANTING BREATHING TREATMENT, RT INFORMED.
[2018-10-10] MEDS: MORPHINE SULFATE INJ 2 MG/ML DISP.SYRIN IV PRN (20:42)
--- NOTE | 2018-10-10 20:42 | NUR ---
ICU/RN RESTLESS AND AGITATED CONTINUES TO C/O SOB,REASSURANCE GIVEN.GIVEN 2MG OF MORPHINE FOR ABOVE AND ALSO FOR HIGH BP.SEE VS FLOW SHEET.
[2018-10-10] MEDS: TERAZOSIN HCL 1 MG CAPSULE PO SCH (22:22)
[2018-10-11] VITALS (24 sets, daily range): BP systolic 126–168; BP diastolic 63–97
[2018-10-11] MEDS: ACETYLCYSTEINE 10% SOLN 400 MG/4 ML VIAL NEB SCH ×4 (00:46→23:30)
[2018-10-11] MEDS: IPRATROPIUM NEB FS 0.5 MG/2.5 ML AMPUL.NEB NEB SCH ×4 (00:47→20:11)
--- NOTE | 2018-10-11 02:15 | NUR ---
ICU/RN DESATURATES EASILY TO 71%.PT VERY NON-COMPLIANT.PUT BACK ON 10L VIA SIMPLE MASK.SATURATION UP TO 92% WITHIN 5MIN.
--- NOTE | 2018-10-11 05:55 | NUR ---
ICU/RN HD STARTED BY HD RN.BUT UNABLE TO DO SO MACHINE KEEPS ALARMING.WILL COME BACK.
[2018-10-11] MEDS: BLOOD SUGAR DIAGNOSTIC 1 EACH STRIP IN SCH ×4 (06:00→18:44)
--- NOTE | 2018-10-11 06:59 | NUR ---
ICU/RN HD RESTARTED.
--- NOTE | 2018-10-11 07:26 | NUR ---
ICU/RN REPORT AND CARE OF PT GIVEN TO EREMA AVILA.
--- NOTE | 2018-10-11 07:42 | NUR ---
RT MED NOTED UNABLE TO ACCESS FLOWMETER/HHN SETUP S/P DIALYSIS MACHINE AT BEDSIDE. WILL ATTEMPT AT A LATER TIME. NO RESP DISTRESS NOTED.
--- NOTE | 2018-10-11 09:23 | NUR ---
RN NOTES 0722-RECEIVED PATOIENT FROM RN. PATIENT CURRENTLY ON DIALYSIS, PATIENT ANSWERS QUESTIONS APPROPRIATELY 0915-FAMILY AT BEDSIDE. FED HIM SAFELY.SAFETY MAINTAINED.DIALYSIS ONGOING
[2018-10-11] MEDS: PIPERACILLIN /TAZOBACTAM 2.25 G in IV D5W 50 ML IV SCH ×3 (09:49→21:40)
[2018-10-11] MEDS: SEVELAMER CARBONATE 0.8 GM POWD.PACK PO SCH ×3 (10:00→18:08)
--- NOTE | 2018-10-11 11:56 | NUR ---
RN NOTES 1030-PATIENT POSIITONED SAFELY, LEFT ARM SHUNT DRESSINGS REINFORCED. 1145-ACCUCHECKS DONE, NO COVERAGE, OFFERED TO FEED HIM THIS TIME BUT HE SAID "I DON'T WANT ANYTHING THIS TIME", TO OFFER FOOD AGAIN
[2018-10-11] MEDS: LEVOTHYROXINE SODIUM 25 MCG TABLET PO SCH (12:31)
[2018-10-11] MEDS: ASPIRIN 81 MG TAB.CHEW PO SCH (12:32)
[2018-10-11] MEDS: AMLODIPINE BESYLATE 10 MG TABLET PO SCH (12:32)
[2018-10-11] MEDS: PAROXETINE HCL 10 MG TABLET PO SCH (12:33)
[2018-10-11] MEDS: BUMETANIDE (1 MG) 1 MG TABLET PO SCH ×2 (12:33→17:58)
[2018-10-11] MEDS: NIFEdipine XL (30MG) 30 MG TAB PO SCH (12:34)
--- NOTE | 2018-10-11 13:05 | NUR ---
RN NOTES OFFERED TO FEED PATIENT. EXPLAINED TO HIM THE NEED FOR NUTRITION MOSTLY FOR HIS GLUCOSE LEVEL. PATIENT NOTED EASILY IRRITATED, REFUSING FOOD, MEDS, OFFERED TIME TO TIME TO PAIN HE SAYS RN IS "PUSHY",
[2018-10-11] MEDS: IV D5W 1,000 ML IV PRN (13:52)
--- NOTE | 2018-10-11 14:15 | NUR ---
RN NOTES VISITED BY HIS GRANDSON, INFORMED GRANDSON OF PATIENT STATUS.PATIENT WOKE UP, AGREED TO TAKE SOME OF HIS MEDICINES THEN WANTS TO TAKE THEM "LATER"
[2018-10-11] MEDS: hydrALAZINE HCL 50 MG TABLET PO SCH ×3 (14:43→18:00)
[2018-10-11] MEDS: HEPARIN SODIUM, PORCINE 5000 UNITS/1 ML VIAL SQ SCH ×2 (16:21→21:40)
[2018-10-11] MEDS: DAKINS QUARTER STRENGTH (0.125%) 480 ML BOTTLE TOP SCH (16:25)
--- NOTE | 2018-10-11 17:57 | NUR ---
rn notes 1600-wound care done, he tolerated procedure well. 1700-patient visits, she was updated of patient eating status. patient rasnferred safely to 117-1, report given to rn for fruther care. patient no sign of pain.
[2018-10-11] MEDS: MORPHINE SULFATE INJ 2 MG/ML DISP.SYRIN IV PRN (17:58)
--- NOTE | 2018-10-11 18:37 | NUR ---
transfer pt transferred from icu to wood pt alert and oriented x 3 on cardiac exercise specialist sr @76 on 3 lpm nc saturation 94% pt has 20g piv in right FA running D5W # 75 ml/hr. pt has HD shunt on left arm had dialysis yesterday with 3 liters removed. pt family present eating dinner. pt given 1800 medications and c/o of generalized body pain given pain medications. call castro next to pt bed alarm on will continue to monitor and will given RN report for continuity of care to PM shift R N
--- NOTE | 2018-10-11 18:41 | NUR ---
rn notes 1808- in the room, has concerns about patient status: intubation-when can he be extubated, tracheostomy, dialysis to pull out fluids from the lungs instead of dialysis, whether patient supposed to be fed or not. she has ideas time to time, explained to her that patient situation is different from what it was before.redirected her to0 patient tolerance to waening for several hours today. wathces monitor all the time, wanting cardizem to be restarted, Dr. Osmany ferrell MD with orders, patient notified, informed her that cardizem drip will be mixed by pharmacy and it will be started as soon as the drip is available for infusion.
[2018-10-11] MEDS: HYDROCODONE/APAP 10/325MG 1 EA TABLET PO PRN (19:56)
--- NOTE | 2018-10-11 20:00 | NUR ---
RN INITIAL NOTES PATIENT IN BED, ASLEEP BUT EASILY AROUSABLE. ALERT AND ORIENTED X3. ON TELE MONITOR SR. ON ROOM AIR, NO COMPLAINS OF ANY SOB NOR PAIN. HAS A RIGHT FA #20 WITH FLUIDS ORDERED. LEFT FA FISTULA OF HD. BED LOCKED AND IN LOWEST POSITION. CALL LIGHT WITHIN REACH. WILL CONTINUE TO MONITOR CLOSELY
[2018-10-11] MEDS ORDERED: TERAZOSIN HCL 1 MG CAPSULE ONE (22:18)
[2018-10-11] MEDS: TERAZOSIN HCL 1 MG CAPSULE PO SCH (22:28)
[2018-10-12] VITALS (7 sets, daily range): BP systolic 100–143; BP diastolic 48–83
[2018-10-12] MEDS: BLOOD SUGAR DIAGNOSTIC 1 EACH STRIP IN SCH ×4 (00:39→17:53)
[2018-10-12] MEDS: IV D5W 1,000 ML IV PRN (01:00)
[2018-10-12] MEDS: IPRATROPIUM NEB FS 0.5 MG/2.5 ML AMPUL.NEB NEB SCH ×4 (01:21→19:30)
[2018-10-12] MEDS: PIPERACILLIN /TAZOBACTAM 2.25 G in IV D5W 50 ML IV SCH ×3 (05:13→21:46)
--- NOTE | 2018-10-12 06:00 | NUR ---
RN NOTES PT REFUSED ACCU CHECK AND INSULIN.
--- NOTE | 2018-10-12 07:12 | NUR ---
RN CLOSING NOTES PATIENT IN BED. TOOK ALL HIS MEDS. PT REFUSED HIS AM INSULIN. WOUND CARE DONE. PAIN MEDS GIVEN ORDERED X1. IV IN R FA WITH FLUIDS INFUSING ORDERED. WILL ENDORSED TO AM SHIFT FOR LULI
[2018-10-12] MEDS: INSULIN REGULAR, HUMAN 100 UNIT/ML 3 ML VIAL SQ PRN (07:24)
[2018-10-12 07:25] LABS: BASOPHILS % (AUTO) 0.3 % (0.0-2.0); EOSINOPHILS % (AUTO) 0.5 % (0.0-6.0); HEMATOCRIT 31 % (39-51); HEMOGLOBIN 10.1 g/dL (13.5-17.5); LYMPHOCYTES # (AUTO) 0.8 /CMM (0.8-4.8); MEAN CORPUSCULAR HGB CONC 33 g/dl (31.0-36.0); MEAN CORPUSCULAR VOLUME 97 fL (80-96); MONOCYTES # (AUTO) 0.6 /CMM (0.1-1.30); MONOCYTES % (AUTO) 7.4 % (2.0-12.0); NEUTROPHILS # (AUTO) 7.1 /CMM (1.8-8.9); NEUTROPHILS % (AUTO) 82.8 % (43.0-81.0); PLATELET COUNT (AUTO) 129 /CMM (150-450); RED BLOOD CELL COUNT(AUTO) 3.15 MIL/uL (4.5-6.0); WHITE BLOOD COUNT (AUTO) 8.6 K/uL (4.3-11.0)
[2018-10-12] MEDS: ACETYLCYSTEINE 10% SOLN 400 MG/4 ML VIAL NEB SCH ×3 (07:29→23:53)
--- NOTE | 2018-10-12 07:30 | NUR ---
RN NOTES RECEIVED PATIENT IN BED, ASLEEP, AROUSES TO VERBAL STIMULI, ABLE TO RESPOND APPROPRIATELY. NO SHORTNESS OF BREATH NOTED. ON NASAL CANNULA, 02 AT 3LPM, SATING FINE. PATIENT APPEARS COMFORTABLE AT THIS TIME, NO INDICATION OF PAIN NOTED. SINUS RHYTHM ON THE MONITOR WITH HR ON THE 60'S. IV ACCESS NOTED ON THE R FOREARM G 20, IN PLACE AND PATENT ON FLUSHING, DRESSING C/D/I BUT PATIENT WITH COMPLAINTS OF PAIN. WITH ONGOING IV OF D5NS AT 710CC/HR. FLUIDS HELD AT THIS TIME, WILL REINSERT A NEW ONE. L HAND AV SHUNT WITH BRUIT. PATIENT ENCOURAGE TO CALL FOR HELP AD ASSISTANCE, CALL LIGHT PLACED WITHIN REACH. SAFETY MEASURES OBSERVED AND MAINTAINED. BED PLACE IN LOW AND LOCKED POSITIONED. WILL CONTINUE TO MONITOR AND ANTICIPATE NEEDS
[2018-10-12 07:51] LABS: CALCIUM, SERUM 7.6 mg/dL (8.5-10.1); CREATININE 6.6 mg/dL (0.6-1.3); MAGNESIUM 1.8 mg/dL (1.8-2.4); PHOSPHORUS 7.9 mg/dL (2.5-4.9); POTASSIUM 4.9 mmol/L (3.5-5.1)
[2018-10-12] MEDS: LEVOTHYROXINE SODIUM 25 MCG TABLET PO SCH (08:27)
[2018-10-12] MEDS: SEVELAMER CARBONATE 0.8 GM POWD.PACK PO SCH ×3 (08:27→17:54)
[2018-10-12] MEDS: hydrALAZINE HCL 50 MG TABLET PO SCH ×3 (08:28→17:00)
[2018-10-12] MEDS: ASPIRIN 81 MG TAB.CHEW PO SCH (08:28)
[2018-10-12] MEDS: BUMETANIDE (1 MG) 1 MG TABLET PO SCH ×2 (08:30→17:34)
[2018-10-12] MEDS: AMLODIPINE BESYLATE 10 MG TABLET PO SCH (08:30)
[2018-10-12] MEDS: NIFEdipine XL (30MG) 30 MG TAB PO SCH (08:31)
[2018-10-12] MEDS: DAKINS QUARTER STRENGTH (0.125%) 480 ML BOTTLE TOP SCH (08:36)
[2018-10-12] MEDS: HEPARIN SODIUM, PORCINE 5000 UNITS/1 ML VIAL SQ SCH ×2 (09:00→21:00)
--- NOTE | 2018-10-12 09:00 | NUR ---
RN NOTES BLOOD PRESSURE MEDICATIONS NOT GIVEN AT THIS TIME DUE TO PARAMETERS NOT MET. HEPARIN NOT GIVEN DUE TO PLATELETS TRENDING SARAI AND APTT IS ALREADY PROLONGED
--- NOTE | 2018-10-12 10:00 | NUR ---
RN NOTES SEEN AND EXAMINED BY DR. NIETO WITH ORDERS TO OBTAINED PREVIOUS CARDIAC CATH REPORT AND ECHOCARDIOGRAM RESULT. ORDERS CARRIED OUT FACILITATED RELEASE OF INFORMATION FORM AND FAXED IT TO [facility] AT [phone].
--- NOTE | 2018-10-12 13:00 | NUR ---
RN NOTES BLOOD PRESSURE MEDICATIONS NOT GIVEN DUE TO PARAMETER NOT MET
--- NOTE | 2018-10-12 17:00 | NUR ---
RN NOTES BLOOD PRESSURE MEDICATIONS NOT GIVEN DUE TO PARAMETER NOT MET
--- NOTE | 2018-10-12 18:00 | NUR ---
RN NOTES PATIENT WITH IDEATION OF GETTING DISCHARGE TODAY AT THIS TIME. REMINDED PATIENT THAT THERE WERE NO ORDERS FROM THE MD. SPOKE TO YNES (DAUGHTER) TO UPDATE HER ON THE CURRENT SITUATION AND REQUESTED HER TO CALL THE PATIENT IN HOPE THAT HE'LL CALM DOWN IF HE HEARS IT FROM THE DAUGHTER.
--- NOTE | 2018-10-12 19:30 | NUR ---
RN NOTES ENDORSED FOR CONTINUITY OF CARE. NOT ON ANY FORM OF DISTRESS. NO ACUTE CHANGES WITHIN THE SHIFT. STILL WITH HOPES OF GETTING DISCHARGE TODAY DESPITE REMINDING HIM THAT NO ORDERS WERE OBTAINED YET
--- NOTE | 2018-10-12 20:13 | NUR ---
PREM RN OPENING NOTES RECEIVED REPORT FROM VALENTINO RN. PATIENT A/A/O X3, ABLE TO MAKE NEEDS KNOWN BUT W/ MOMENTS OF FORGETFULNESS & AGITATION. BREATHING EVEN & UNLABORED, TOLERATING ROOM AIR. DENIES ANY SOB OR DIFFICULTY BREATHING. ON TELE W/ SINUS RHYTHM, HR 80S. DENIES ANY PAIN OR DISCOMFORT @ THIS TIME. SAFETY MEASURES IN PLACE W/ SIDE RAILS UP & BED ALARM ON. CALL LIGHT PLACED WITHIN REACH & INSTRUCTED TO CALL FOR ASSISTANCE. WILL CONTINUE TO MONITOR. PATIENT PULLED OUT IV SITE ON RIGHT WRIST. PATIENT REFUSING ANOTHER IV TO BE REINSERTED. EXPLAINED RISKS & BENEFITS, WILL OFFER AGAIN LATER.
[2018-10-12 21:00] LABS: ABG BASE EXCESS -0.1 mmol/L; ABG OXYGEN SATURATION 87.3 % (92.0-98.5); ABG PCO2 40.4 mmHg (35.0-45.0); ABG PH 7.403 (7.350-7.450); ABG PO2 54.6 mmHg (75.0-100.0); AaDO2 126.3 mmHg; COHb 0.8 % (0.5-1.5); MetHb 0.7 % (0.0-1.5); SITE, ABG Right Radial; VENT MODE, BG NC 3LPM O2
[2018-10-12] MEDS: TERAZOSIN HCL 1 MG CAPSULE PO SCH (21:25)
--- NOTE | 2018-10-12 23:00 | NUR ---
PREM RN NOTES PATIENT VERY AGITATED & RESTLESS & STATING "I WANNA GO HOME". EXPLAINED WHY HE CAN'T GO HOME YET & PATIENT GOT EVEN MORE AGITATED & TRIED GETTING OUT OF BED SEVERAL TIMES. EXPLAINED THAT IF HE GOES HOME, HE WILL GO AGAINST MEDICAL ADVICE & HE AGREED. INFORMED DR DON OF THE SITUATION & PATIENT'S CURRENT CONDITION INCLUDING ABG RESULTS, AND PER MD, HE IS OKAY TO GO IF HE WANTS TO LEAVE. PATIENT TOOK PO MEDS THINKING HE WILL LEAVE BUT REFUSED THE HEPARIN BECAUSE HE DOES NOT WANT TO BE POKED WITH A NEEDLE. PATIENT ALSO PULLED OUT IV SITE & REFUSED TO HAVE NEW ONE REINSERTED. AFTER TAKING HIS PO MEDS, PATIENT SAID HE CALLED FOR A TAXI BUT TAXI NEVER ARRIVED. DAUGHTER, YNES WAS ALSO CALLED DURING THE WHOLE SITUATION & SHE EXPLAINED TO HIM THAT HE HAD TO STAY BUT HE STILL INSISTED ON LEAVING. SITTER @ BEDSIDE TO ENSURE PATIENT DOES NOT GET OUT OF BED & KEEPS HIS O2 MASK ON. WILL CONTINUE TO MONITOR CLOSELY. ALSO NOTED PATIENT'S BS = 58. ENCOURAGED TO DRINK 2 BOXES OF ORANGE JUICE & OFFERED TUNA SANDWICH & EXPLAINED THE IMPORTANCE OF IT INCREASING HIS BLOOD SUGAR.
[2018-10-13] VITALS: BP 120/76
--- NOTE | 2018-10-13 00:30 | NUR ---
PREM RN NOTES RECHECKED PATIENT'S BLOOD SUGAR & BS = 143. NO INSULIN COVERAGE GIVEN D/T RISK FOR REPEATED LOW BLOOD SUGAR RESULT BECAUSE PATIENT IS NOT EATING & NO IVF RUNNING @ THIS TIME. WILL RECHECK @ 0600.
[2018-10-13] MEDS: BLOOD SUGAR DIAGNOSTIC 1 EACH STRIP IN SCH ×4 (00:53→17:31)
[2018-10-13] MEDS: INSULIN REGULAR, HUMAN 100 UNIT/ML 3 ML VIAL SQ PRN ×2 (00:54→06:19)
[2018-10-13] MEDS: IPRATROPIUM NEB FS 0.5 MG/2.5 ML AMPUL.NEB NEB SCH ×4 (01:45→19:30)
[2018-10-13 04:00] VITALS: BP 137/57
[2018-10-13] MEDS: PIPERACILLIN /TAZOBACTAM 2.25 G in IV D5W 50 ML IV SCH ×3 (06:00→21:55)
--- NOTE | 2018-10-13 06:35 | NUR ---
PREM RN NOTES PATIENT'S 0600 BS = 87. NO INSULIN COVERAGE GIVEN. PATIENT ALSO REFUSED AM LAB DRAW & CONTINUED TO REFUSE TO REINSERT NEW IV SITE. IV ZOSYN UNABLE TO GIVE. WILL ENDORSE TO AM NURSE.
--- NOTE | 2018-10-13 07:10 | NUR ---
PREM RN OPENING NOTES RECEIVED PT LYING ON BED,RESTLESS AND MORE COMBATIVE.ALERT/ORIENTED X2.ON TELE HR IS 91 SR WITH PAC.1:1 SITTER IS AT BEDSIDE.HAS FACE MASK 6L IS FLOWING WITH O2 SATURATION 96%,TRYING TO REMOVE THE FACIAL MASK.NO SOB AND ACUTE DISTRESS NOTED.REFUSED TO INSERT IV LINE PER [place] COURT JUDGE NURSE.BED IS IN LOW POSITION AND LOCKED.CALL LIGHT IS WITHIN REACH.WILL CONTINUE TO MONITOR THE PT CLOSELY AND MAINTAIN SAFETY.
[2018-10-13] MEDS: ACETYLCYSTEINE 10% SOLN 400 MG/4 ML VIAL NEB SCH ×3 (07:35→22:58)
[2018-10-13 08:00] VITALS: BP 149/65
[2018-10-13] MEDS: LEVOTHYROXINE SODIUM 25 MCG TABLET PO SCH (08:41)
[2018-10-13] MEDS: BUMETANIDE (1 MG) 1 MG TABLET PO SCH ×2 (09:00→17:00)
[2018-10-13] MEDS: HEPARIN SODIUM, PORCINE 5000 UNITS/1 ML VIAL SQ SCH ×2 (09:00→21:00)
[2018-10-13] MEDS: ASPIRIN 81 MG TAB.CHEW PO SCH (09:00)
[2018-10-13] MEDS: PAROXETINE HCL 10 MG TABLET PO SCH (09:00)
[2018-10-13] MEDS: NIFEdipine XL (30MG) 30 MG TAB PO SCH (09:00)
[2018-10-13] MEDS: hydrALAZINE HCL 50 MG TABLET PO SCH ×3 (09:00→17:00)
[2018-10-13] MEDS: AMLODIPINE BESYLATE 10 MG TABLET PO SCH (09:00)
[2018-10-13] MEDS: SEVELAMER CARBONATE 0.8 GM POWD.PACK PO SCH ×3 (09:19→17:07)
--- NOTE | 2018-10-13 10:23 | NUR ---
PREM RN NOTES INFANT ROOM TEACHER ANN MCARTHUR MADE AWARE ABOUT THE REFUSAL BEHAVIOR OF REFUSE FOOD,MEDICINES AND ALL THE TREATMENTS.
--- NOTE | 2018-10-13 11:30 | NUR ---
FILM COLOR TESTER NOTES CHECKED THE BLOOD SUGAR ,IS 40,REPEATED THE TEST.IT IS 43.PT HAS NO S/S HYPOGLYCEMIA.ORANGE JUICE GIVEN.WILL CONTINUE TO MONITOR THE PT AND WILL REPEAT THE TEST AFTER 30MT.
[2018-10-13 12:00] VITALS: BP 143/69
[2018-10-13] MEDS: DAKINS QUARTER STRENGTH (0.125%) 480 ML BOTTLE TOP SCH (13:20)
[2018-10-13] MEDS ORDERED: IV D5W 1,000 ML IV ONE (14:30)
[2018-10-13] MEDS ORDERED: LORAZEPAM INJ 2 MG/ML VIAL IV ONE (14:30)
[2018-10-13] MEDS ORDERED: LORAZEPAM INJ 2 MG/ML VIAL IM ONE (15:00)
[2018-10-13 16:00] VITALS: BP 155/87
--- NOTE | 2018-10-13 17:00 | NUR ---
MANAGER REGIONAL SALES NOTES ,PSYCHIATRIST SEEN THE PT AND PT IS SLEEPY AND CANNOT ABLE TO ANSWER THE QUESTION PROPERLY AND SO HE COULDN'T ABLE TO ASSESS THE PT ,SAID TO DO RECONSULTATION IN THE FOLLOWING DAYS WHEN HE IS AWAKE.NEW ORDERS NOTED AND CARRIED OUT.
--- NOTE | 2018-10-13 17:29 | NUR ---
TELLER HEAD NOTES ,ELEVATORS INSPECTOR ORDERED US GUIDED THORACENTESIS OF LEFT LUNG,TELEPHONE CONSENT OBTAINED FROM PADMA QUICK,DAUGHTER.
[2018-10-13 20:00] VITALS: BP 128/86
--- NOTE | 2018-10-13 21:03 | NUR ---
RN NOTE PATIENT IS RECEIVING DIALYSIS, NO S/S OF DISTRESS NOTED
--- NOTE | 2018-10-13 21:50 | NUR ---
RN NOTE DIALYSIS IS OVER 2.5L OUT, ENCOURAGED SNACKS INTAKE DUE TO HISTORY OF HYPOGLYCEMIA, REFUSED, EXPLAINED ALL RISKS AND BENEFITS, STILL REFUSED, MD IS AWARE
[2018-10-13] MEDS: TERAZOSIN HCL 1 MG CAPSULE PO SCH ×2 (21:56→22:00)
--- NOTE | 2018-10-13 22:16 | NUR ---
RN NOTE PATIENT REFUSED EVENING SCHEDULED MEDICATIONS, DR DON IS AWARE, EXPLAINED ALL RISKS AND BENEFITS, STILL REFUSED
--- NOTE | 2018-10-13 23:00 | NUR ---
RN NOTE PATIENT IS REMOVING IV LINES, KICKING, RECEIVED ORDERS FROM DOCTOR ARIAN GOODMAN, WILL CONTINUE TO MONITOR PATIENT
[2018-10-13] MEDS ORDERED: LORAZEPAM INJ 2 MG/ML VIAL IV PRN (23:30)
[2018-10-14] VITALS (20 sets, daily range): BP systolic 86–167; BP diastolic 64–99
[2018-10-14] MEDS ORDERED: DEXTROSE 50%-WATER 50 ML DISP.SYRIN IV PRN (00:30)
[2018-10-14] MEDS ORDERED: INSULIN REGULAR, HUMAN 100 UNIT/ML 3 ML VIAL SQ PRN (00:30)
[2018-10-14] MEDS ORDERED: BLOOD SUGAR DIAGNOSTIC 1 EACH STRIP IN SCH (01:00)
[2018-10-14] MEDS: IPRATROPIUM NEB FS 0.5 MG/2.5 ML AMPUL.NEB NEB SCH ×4 (01:04→19:56)
[2018-10-14] MEDS: BLOOD SUGAR DIAGNOSTIC 1 EACH STRIP IN SCH ×6 (01:43→21:11)
[2018-10-14] MEDS: IV 10% DEXTROSE 1,000 ML IV PRN ×2 (02:23→18:06)
[2018-10-14] MEDS: PIPERACILLIN /TAZOBACTAM 2.25 G in IV D5W 50 ML IV SCH ×3 (05:31→21:11)
[2018-10-14 06:25] LABS: BASOPHILS % (AUTO) 0.2 % (0.0-2.0); EOSINOPHILS % (AUTO) 0.4 % (0.0-6.0); HEMATOCRIT 30 % (39-51); HEMOGLOBIN 10.1 g/dL (13.5-17.5); LYMPHOCYTES # (AUTO) 0.5 /CMM (0.8-4.8); LYMPHOCYTES % (AUTO) 5.9 % (20.0-44.0); MEAN CORPUSCULAR HGB CONC 34 g/dl (31.0-36.0); MEAN CORPUSCULAR VOLUME 95 fL (80-96); MONOCYTES # (AUTO) 0.7 /CMM (0.1-1.30); MONOCYTES % (AUTO) 7.2 % (2.0-12.0); NEUTROPHILS # (AUTO) 7.9 /CMM (1.8-8.9); NEUTROPHILS % (AUTO) 86.3 % (43.0-81.0); PLATELET COUNT (AUTO) 226 /CMM (150-450); RED BLOOD CELL COUNT(AUTO) 3.18 MIL/uL (4.5-6.0); WHITE BLOOD COUNT (AUTO) 9.2 K/uL (4.3-11.0)
--- NOTE | 2018-10-14 07:05 | NUR ---
RN NOTES RECEIVED PT ON BED, DRAWZY , MUMBLES TO VERBAL STIMULI , DOES NOTE FOLLOW COMMAND, ON 6L O2 FACE MASK , NO SOB NOTED, ON TELE SR HR IN 80' , R UPPER ARM MIDLINE SITE CLEAN, DRY AND INTACT , PT ON D10W AT 70CC/HR , SR UP x3, CALL LIGHT WITHIN EASY REACH, BED LOCKED AND IN LOWEST POSITION, CONTINUE TO MONITOR.
[2018-10-14] MEDS: ACETYLCYSTEINE 10% SOLN 400 MG/4 ML VIAL NEB SCH ×2 (07:18→15:33)
[2018-10-14 07:19] LABS: CREATININE 6.5 mg/dL (0.6-1.3); MAGNESIUM 1.9 mg/dL (1.8-2.4); POTASSIUM 5.4 mmol/L (3.5-5.1)
[2018-10-14 07:20] LABS: PHOSPHORUS 8.1 mg/dL (2.5-4.9)
[2018-10-14] MEDS: SEVELAMER CARBONATE 0.8 GM POWD.PACK PO SCH ×3 (08:00→17:28)
--- NOTE | 2018-10-14 08:15 | NUR ---
PATIENT SOMNOLENT,ABG DONE RELAYED TO DR. HORVATH AND ORDER TRANSFER TO ICU ON BIPAP.
--- NOTE | 2018-10-14 08:30 | NUR ---
RN NOTES PT TRANSFER TO ICU PER DR HORVATH ORDER, VIA ACLS PROTOCOL,
--- NOTE | 2018-10-14 08:30 | NUR ---
RN INITIAL NOTES RECEIVED PT FROM PREM VIA BED. PT LETHARGIC, RESPONDS TO PAIN STIMULI. PLACED ON BIPAP. HOB ELEVATED. NO SIGNS OF PAIN NOTED. HOB ELEVATED. CONNECTED TO MONITOR. CLARA MIDLINE IN PLACE. D10 AT 70ML/HR INFUSING. LUCIAN AV FISTULA NOTED, BRUIT AND THRILL PRESENT. BODY ASSESSMENT DONE, PICTURES TAKEN AND PLACED IN THE CHART. ORDERED WOUND CARE CONSULT. SEEN AND EXAMINED BY DR HORVATH. PT FOR US GUIDED LEFT THORACENTESIS FOR PLEURAL EFFUSION. WILL SEND SPECIMEN FOR CYTOLOGY. PT FOR CONSULT WITH DR MANZO FOR AMS. WILL CLOSELY MONITOR.
[2018-10-14] MEDS: NIFEdipine XL (30MG) 30 MG TAB PO SCH (09:00)
[2018-10-14] MEDS: BUMETANIDE (1 MG) 1 MG TABLET PO SCH ×2 (09:00→17:00)
[2018-10-14] MEDS: AMLODIPINE BESYLATE 10 MG TABLET PO SCH (09:00)
[2018-10-14] MEDS: HEPARIN SODIUM, PORCINE 5000 UNITS/1 ML VIAL SQ SCH ×2 (09:00→21:00)
[2018-10-14] MEDS: ASPIRIN 81 MG TAB.CHEW PO SCH (09:00)
[2018-10-14] MEDS: PAROXETINE HCL 10 MG TABLET PO SCH (09:00)
[2018-10-14] MEDS: hydrALAZINE HCL 50 MG TABLET PO SCH ×3 (09:00→17:00)
[2018-10-14] MEDS: DAKINS QUARTER STRENGTH (0.125%) 480 ML BOTTLE TOP SCH (09:08)
[2018-10-14 09:34] LABS: ABG OXYGEN SATURATION 96.8 % (92.0-98.5); ABG PCO2 55.2 mmHg (35.0-45.0); ABG PH 7.307 (7.350-7.450); ABG PO2 107.9 mmHg (75.0-100.0); AaDO2 208.3 mmHg; COHb 0.3 % (0.5-1.5); MetHb 0.8 % (0.0-1.5); O2Hb 95.7 % (94.0-97.0); SITE, ABG Right Radial; VENT MODE, BG simple mask
[2018-10-14] MEDS ORDERED: NOREPINEPHRINE 16 MG in IV D5W 500 ML IV PRN (12:00)
--- NOTE | 2018-10-14 12:00 | NUR ---
RN NOTES SEEN AND EXAMINED BY LASHON BASSETT NP. AWARE OF LAB VALUES AND CXR RESULT. US GUIDED THORACENTESIS DONE. REMOVED 1550ML OUT. SPECIMEN SPENT FOR CYTOLOGY. PT TOLERATED PROCEDURE WELL. WILL CLOSELY MONITOR.
[2018-10-14 12:09] LABS: ABG BASE EXCESS -0.6 mmol/L; ABG OXYGEN SATURATION 96.9 % (92.0-98.5); ABG PCO2 47.7 mmHg (35.0-45.0); ABG PH 7.344 (7.350-7.450); ABG PO2 105.8 mmHg (75.0-100.0); AaDO2 124.5 mmHg; COHb 0.7 % (0.5-1.5); MetHb 0.4 % (0.0-1.5); O2Hb 95.8 % (94.0-97.0); SITE, ABG Right Radial
--- NOTE | 2018-10-14 18:42 | NUR ---
RN CLOSING NOTES PT REMAINS ON BIPAP. KEPT HOB ELEVATED. NO RESPIRATORY DISTRESS NOTED. NO SIGNS OF PAIN NOTED. IVF INFUSING. KEPT CLEAN AND DRY. KEPT COMFORTABLE. ALL NEEDS ANTICIPATED AND MET. CALL LIGHT WITHIN REACH. WILL CLOSELY MONITOR.
[2018-10-14] MEDS: TERAZOSIN HCL 1 MG CAPSULE PO SCH (21:05)
[2018-10-15] VITALS (22 sets, daily range): BP systolic 100–168; BP diastolic 44–97
[2018-10-15] MEDS: BLOOD SUGAR DIAGNOSTIC 1 EACH STRIP IN SCH ×5 (01:02→22:02)
[2018-10-15] MEDS: ACETYLCYSTEINE 10% SOLN 400 MG/4 ML VIAL NEB SCH ×4 (01:48→23:31)
[2018-10-15] MEDS: IPRATROPIUM NEB FS 0.5 MG/2.5 ML AMPUL.NEB NEB SCH ×4 (01:48→23:06)
[2018-10-15 04:59] LABS: BASOPHILS # (AUTO) 0.1 /CMM (0.0-0.2); BASOPHILS % (AUTO) 0.5 % (0.0-2.0); EOSINOPHILS % (AUTO) 0.7 % (0.0-6.0); HEMATOCRIT 32 % (39-51); HEMOGLOBIN 10.8 g/dL (13.5-17.5); LYMPHOCYTES # (AUTO) 0.7 /CMM (0.8-4.8); LYMPHOCYTES % (AUTO) 6.3 % (20.0-44.0); MEAN CORPUSCULAR HGB CONC 34 g/dl (31.0-36.0); MEAN CORPUSCULAR VOLUME 97 fL (80-96); MONOCYTES # (AUTO) 0.8 /CMM (0.1-1.30); MONOCYTES % (AUTO) 7.4 % (2.0-12.0); NEUTROPHILS # (AUTO) 9.1 /CMM (1.8-8.9); NEUTROPHILS % (AUTO) 85.1 % (43.0-81.0); PLATELET COUNT (AUTO) 171 /CMM (150-450); RED BLOOD CELL COUNT(AUTO) 3.29 MIL/uL (4.5-6.0); WHITE BLOOD COUNT (AUTO) 10.7 K/uL (4.3-11.0)
[2018-10-15] MEDS: PIPERACILLIN /TAZOBACTAM 2.25 G in IV D5W 50 ML IV SCH (05:17)
[2018-10-15 05:19] LABS: BILIRUBIN,TOTAL 0.4 mg/dL (0.2-1.0); CALCIUM, SERUM 7.8 mg/dL (8.5-10.1); CREATININE 7.1 mg/dL (0.6-1.3); MAGNESIUM 1.9 mg/dL (1.8-2.4); POTASSIUM 5.5 mmol/L (3.5-5.1); TOTAL PROTEIN, SERUM 5.6 g/dL (6.4-8.2)
[2018-10-15 05:31] LABS: ALBUMIN 1.3 g/dL (3.4-5.0); PHOSPHORUS 8.6 mg/dL (2.5-4.9)
--- NOTE | 2018-10-15 06:52 | NUR ---
PT REMAINS IN NO ACUTE DISTRESS IN BED. PT DID NOT HAVE ANY SIGNIFICANT CHANGE IN CONDITION DURING SHIFT. PT TOLERATED BIPAP SETTING WELL. ALL NEEDS MET, ALL ORDERS CARRIED OUT. WILL ENDORSE CARE TO AM RN FOR CONTINUITY OF CARE.
--- NOTE | 2018-10-15 07:15 | NUR ---
RN INITIAL NOTES RECEIVED PT AWAKE, A/OX2. ON BIPAP. HOB ELEVATED. NO SIGNS OF PAIN NOTED. HOB ELEVATED. CLARA MIDLINE IN PLACE. D10 AT 70ML/HR INFUSING. LUCIAN AV FISTULA NOTED, BRUIT AND THRILL PRESENT. PT REPOSITIONED. BLE ELEVATED. CALL LIGHT WITHIN REACH. WILL MONITOR
--- NOTE | 2018-10-15 07:57 | NUR ---
WOUND CARE CONSULT: PT SEEN FOR RT BUTTOCK SKIN TEAR. PT NOTED TO HAVE GENERALIZED EDEMA WHICH IS PITTING (4+) WITH VERY FRAGILE SKIN. RECOMMENDATIONS MADE FOR WOUND AND SKIN CARE AND PROTECTION. DISCUSSED WITH NURSING STAFF. PT ON FIRST STEP CIRRUS LOW AIRLOSS MATTRESS. PT NOTED TO HAVE MULTIPLE CO-MORBIDITIES INCLUDING END STAGE RENAL FAILURE ON HD, S/P RESPIRATORY ARREST AND INTUBATION, S/P THORACENTESIS, MALNUTRITION, AND CHF. FURTHER SKIN BREAKDOWN MAY BE UNAVOIDABLE. DIETITIAN FOLLOWING PT. PT IS THIN AND BONY WITH EDEMA. DEFER TO DPM FOR LOWER EXTREMITIES. WILL SEE PRN. IN AGREEMENT WITH PLAN OF CARE. Addendum: 10/15/18 at 0802 by MIRIAN DAVILA WNDNU Amended: Links added.
[2018-10-15] MEDS: IV 10% DEXTROSE 1,000 ML IV PRN (08:44)
[2018-10-15] MEDS: PAROXETINE HCL 10 MG TABLET PO SCH (08:45)
[2018-10-15] MEDS: AMLODIPINE BESYLATE 10 MG TABLET PO SCH (08:45)
[2018-10-15] MEDS: SEVELAMER CARBONATE 0.8 GM POWD.PACK PO SCH ×3 (08:45→17:44)
[2018-10-15] MEDS: ASPIRIN 81 MG TAB.CHEW PO SCH (08:45)
[2018-10-15] MEDS: hydrALAZINE HCL 50 MG TABLET PO SCH ×3 (08:46→16:39)
[2018-10-15] MEDS: NIFEdipine XL (30MG) 30 MG TAB PO SCH (08:46)
[2018-10-15] MEDS: DAKINS QUARTER STRENGTH (0.125%) 480 ML BOTTLE TOP SCH (08:47)
[2018-10-15] MEDS: HEPARIN SODIUM, PORCINE 5000 UNITS/1 ML VIAL SQ SCH ×2 (08:49→20:42)
[2018-10-15 10:29] LABS: ABG BASE EXCESS -0.8 mmol/L; ABG OXYGEN SATURATION 69.9 % (92.0-98.5); ABG PCO2 48.7 mmHg (35.0-45.0); ABG PH 7.335 (7.350-7.450); ABG PO2 40.6 mmHg (75.0-100.0); COHb 0.7 % (0.5-1.5); MetHb 0.5 % (0.0-1.5); O2Hb 69.1 % (94.0-97.0); SITE, ABG Right Radial; VENT MODE, BG 2L N/C
[2018-10-15] MEDS: NITROGLYCERIN 30 GM TUBE TP SCH ×2 (10:33→20:54)
--- NOTE | 2018-10-15 11:00 | NUR ---
RN NOTES 1000 SEEN AND EXAMINED BY DR HORVATH. PT ON VIA NC AT 2LPM. AWARE OF ABG RESULT. NO RESPIRATORY DISTRESS NOTED. HOB ELEVATED. WILL MONITOR. 1100 SEEN AND EXAMINED BY DR GOMES. AWARE OF LAB VALUES AND CXR RESULT. PT FOR HD TODAY. WILL CLOSELY MONITOR
[2018-10-15] MEDS ORDERED: DEXTROSE 50%-WATER 50 ML DISP.SYRIN IV PRN (14:00)
[2018-10-15] MEDS ORDERED: INSULIN REGULAR, HUMAN 100 UNIT/ML 3 ML VIAL SQ PRN (14:00)
[2018-10-15] MEDS: PROSOURCE / PROSTAT (PYXIS) 30 ML UDC PO SCH (16:39)
[2018-10-15] MEDS: HYDROCODONE/APAP 10/325MG 1 EA TABLET PO PRN (17:46)
--- NOTE | 2018-10-15 18:30 | NUR ---
. PREM RN NOTE RECEIVED REPORT FROM CARMEN AVILA.PATIENT RECEIVED IN ROOM 115-1.PATIENT AXOX3.ON NASAL CANULA 2L.NO SOB NO DISTRESS NOTED.IV LINE INTACT AND PATENT.SAFETY MEASURES IN PLACE.CALL LIGHT IN REACH.V/S STABLE.WILL ENDORSE TO PM NURSE FOR LULI. ..
--- NOTE | 2018-10-15 18:40 | NUR ---
RN NOTES PT TRANSFERRED TO 115-1. PT A/OX2-3. ON 02 VIA MD. NO RESPIRATORY DISTRESS NOTED. NO SOB NOTED. DENIES ANY PAIN. BEDSIDE REPORT GIVEN TO MARGARITA PAYNE. TOOK OVER PT'S CARE. YNES (DTR) AWARE OF TRANSFER
--- NOTE | 2018-10-15 20:00 | NUR ---
PREM NOTES RECEIVED PT. AWAKE ALERT OX3,FOLLOWS COMMANDS.OFFERS NO COMPLAINTS.DENIES SHORTNESS OF BREATH.UNABLE TO GET O2 SAT.OXIMETRY CHANGED SEVERAL TIMES.RT INFORMED THAT PT NEEDS TO HAVE CONT BED SIDE PULSE OX.SAT=92-94%.
[2018-10-15] MEDS: TERAZOSIN HCL 1 MG CAPSULE PO SCH (22:00)
--- NOTE | 2018-10-15 22:00 | NUR ---
PREM NOTES BS=67MG/DL,GIVEN 90 ML APPLE JUICE.PT REFUSES TO EAT PUDDING.
[2018-10-16] VITALS: BP 125/68
[2018-10-16] MEDS: IPRATROPIUM NEB FS 0.5 MG/2.5 ML AMPUL.NEB NEB SCH ×4 (01:39→19:50)
--- NOTE | 2018-10-16 02:06 | NUR ---
PREM NOTES PT. EXPRESSED DESIRE TO GO HOME TODAY,EXPLANATION OF PT"S CONDITION GIVEN AND REASSURANCE GIVEN.SLEEPING INTERMITTENTLY.SAT OF 97% ON 2LN/C.
[2018-10-16 04:00] VITALS: BP 125/66
--- NOTE | 2018-10-16 06:02 | NUR ---
PREM NOTES OFFERED BATH BUT FLATLY REFUSED.INSISTING OF GOING HOME TODAY
[2018-10-16 06:47] LABS: BASOPHILS % (AUTO) 0.4 % (0.0-2.0); EOSINOPHILS % (AUTO) 0.2 % (0.0-6.0); HEMATOCRIT 29 % (39-51); HEMOGLOBIN 9.6 g/dL (13.5-17.5); LYMPHOCYTES # (AUTO) 0.7 /CMM (0.8-4.8); LYMPHOCYTES % (AUTO) 6.5 % (20.0-44.0); MEAN CORPUSCULAR HGB CONC 33 g/dl (31.0-36.0); MEAN CORPUSCULAR VOLUME 97 fL (80-96); MONOCYTES # (AUTO) 0.7 /CMM (0.1-1.30); MONOCYTES % (AUTO) 6.7 % (2.0-12.0); NEUTROPHILS # (AUTO) 8.9 /CMM (1.8-8.9); NEUTROPHILS % (AUTO) 86.2 % (43.0-81.0); PLATELET COUNT (AUTO) 211 /CMM (150-450); RED BLOOD CELL COUNT(AUTO) 3.01 MIL/uL (4.5-6.0); WHITE BLOOD COUNT (AUTO) 10.3 K/uL (4.3-11.0)
[2018-10-16 07:19] LABS: CALCIUM, SERUM 7.9 mg/dL (8.5-10.1); CREATININE 6.1 mg/dL (0.6-1.3); PHOSPHORUS 7.3 mg/dL (2.5-4.9); POTASSIUM 5.1 mmol/L (3.5-5.1)
[2018-10-16] MEDS: ACETYLCYSTEINE 10% SOLN 400 MG/4 ML VIAL NEB SCH ×3 (07:35→23:30)
[2018-10-16] MEDS: BLOOD SUGAR DIAGNOSTIC 1 EACH STRIP IN SCH ×4 (07:56→22:21)
[2018-10-16 08:00] VITALS: BP 112/47
--- NOTE | 2018-10-16 08:00 | NUR ---
received pt from performance improvement specialist, a/o x4, SR, on 2L 02 sat well, tolerates diet, HD patient, v/s stable, no pain, pt turned and repositioned.
[2018-10-16] MEDS: SEVELAMER CARBONATE 0.8 GM POWD.PACK PO SCH ×3 (08:09→17:03)
[2018-10-16] MEDS: hydrALAZINE HCL 50 MG TABLET PO SCH ×3 (08:10→17:00)
[2018-10-16] MEDS: NIFEdipine XL (30MG) 30 MG TAB PO SCH (08:10)
[2018-10-16] MEDS: HEPARIN SODIUM, PORCINE 5000 UNITS/1 ML VIAL SQ SCH (08:11)
[2018-10-16] MEDS: ASPIRIN 81 MG TAB.CHEW PO SCH (08:11)
[2018-10-16] MEDS: PAROXETINE HCL 10 MG TABLET PO SCH (08:11)
[2018-10-16] MEDS: DAKINS QUARTER STRENGTH (0.125%) 480 ML BOTTLE TOP SCH (08:12)
[2018-10-16] MEDS: NITROGLYCERIN 30 GM TUBE TP SCH ×2 (08:13→21:00)
[2018-10-16] MEDS: PROSOURCE / PROSTAT (PYXIS) 30 ML UDC PO SCH ×2 (08:14→17:04)
[2018-10-16] MEDS: AMLODIPINE BESYLATE 10 MG TABLET PO SCH (08:15)
[2018-10-16] MEDS: Sodium Chloride 77 MEQ in IV 10% DEXTROSE 1,000 ML IV PRN (11:16)
[2018-10-16] MEDS ORDERED: INSULIN REGULAR, HUMAN 100 UNIT/ML 3 ML VIAL SQ PRN (11:30)
[2018-10-16] MEDS ORDERED: DEXTROSE 50%-WATER 50 ML DISP.SYRIN IV PRN (11:30)
[2018-10-16 12:00] VITALS: BP 120/60
--- NOTE | 2018-10-16 13:57 | NUR ---
it is OK to do CT of abdomen with contrast per Dr Jennifer Gutierrez
[2018-10-16 16:00] VITALS: BP 92/60
[2018-10-16] MEDS ORDERED: IOHEXOL-300 100 ML VIAL IV ONE (16:22)
[2018-10-16] MEDS ORDERED: IV NS 0.9% 250 ML IV ONE (16:22)
[2018-10-16] MEDS ORDERED: CT SWABBABLE VALVE TRANS SET 1 EA INFUS.SET MC ONE (16:22)
--- NOTE | 2018-10-16 16:22 | NUR ---
pt is resting in the bed, a/o x4, SR, v/s stable, no pain, pt cleaned, changed and repositioned q2hrs.
--- NOTE | 2018-10-16 19:44 | NUR ---
RN OPENING NOTES: RECEIVED PT AWAKE, A/OX2. ON 2L NC. HOB ELEVATED. NO SIGNS OF DISTRESS. HOB ELEVATED. CLARA MIDLINE IN PLACE. D10 AT 70ML/HR INFUSING. LUCIAN AV FISTULA NOTED, .SAFETY PRECAUTIONS IN PLACE. CALL LIGHT WITHIN REACH. WILL MONITOR
[2018-10-16 20:00] VITALS: BP 147/70
[2018-10-16] MEDS: TERAZOSIN HCL 1 MG CAPSULE PO SCH (22:00)
--- NOTE | 2018-10-16 22:00 | NUR ---
PT REFUSED MEDICATIONS DUE AT 2100 AND 2200. REPORTS NO CHEST PAIN. SOME SOB. HOB ELEVATED AND 02 INCREASED TO 5 LITERS. PT SATING 89-91. RT AWARE. MADE AWARE THAT PT REFUSED ALL BREATHING TREATMENTS ALL DAY FROM RT. LUNG SOUNDS DIMISHED ON ASSEMENT BILATERAL. PT UNCOPERATIVE WITH POOR UNDERSTANDING OF HEALTH STATUS. BLOOD SUGAR AT 2200 93. WILL CONTINUE TO MONITER.
[2018-10-17] VITALS: BP 147/70
[2018-10-17] MEDS: Sodium Chloride 77 MEQ in IV 10% DEXTROSE 1,000 ML IV PRN ×2 (01:22→17:20)
[2018-10-17] MEDS: IPRATROPIUM NEB FS 0.5 MG/2.5 ML AMPUL.NEB NEB SCH ×4 (01:30→19:30)
[2018-10-17 04:00] VITALS: BP 149/79
[2018-10-17 06:22] LABS: BASOPHILS % (AUTO) 0.3 % (0.0-2.0); EOSINOPHILS % (AUTO) 0.2 % (0.0-6.0); HEMATOCRIT 30 % (39-51); HEMOGLOBIN 9.7 g/dL (13.5-17.5); LYMPHOCYTES # (AUTO) 0.7 /CMM (0.8-4.8); LYMPHOCYTES % (AUTO) 6.3 % (20.0-44.0); MEAN CORPUSCULAR HGB CONC 33 g/dl (31.0-36.0); MEAN CORPUSCULAR VOLUME 97 fL (80-96); MONOCYTES # (AUTO) 0.7 /CMM (0.1-1.30); MONOCYTES % (AUTO) 6.3 % (2.0-12.0); NEUTROPHILS # (AUTO) 9.2 /CMM (1.8-8.9); NEUTROPHILS % (AUTO) 86.9 % (43.0-81.0); PLATELET COUNT (AUTO) 236 /CMM (150-450); RED BLOOD CELL COUNT(AUTO) 3.05 MIL/uL (4.5-6.0); WHITE BLOOD COUNT (AUTO) 10.6 K/uL (4.3-11.0)
[2018-10-17 06:26] LABS: CALCIUM, SERUM 7.9 mg/dL (8.5-10.1); CREATININE 6.7 mg/dL (0.6-1.3); POTASSIUM 5.4 mmol/L (3.5-5.1)
--- NOTE | 2018-10-17 06:53 | NUR ---
RN CLOSING NOTES: PT REFUSED TO BE CHANGED. PT STATED HE WANTS TO LEAVE AND GO AMA. INFORMED HIM OF HIS HEALTH STATUS STILL UNSTABLE AND NOT MEDICALLY CLEARED. WILL ENDORSE TO AM SHIFT AND INFORM FAMILY OF PATIENTS REQUESTS. SAFETY MEASURE IN PLACE AND CALL LIGHT WITHIN REACH.
--- NOTE | 2018-10-17 07:15 | NUR ---
ATMOSPHERIC SCIENTIST OPENING NOTES RECEIVED PT LYING ON BED,ALERT/ORIENTED X2.ON TELE HR IS 84 WITH SR.ON NC 5L O2 CONTINUOUSLY,NO SOB AND ACUTE DISTRESS NOTED.PT REFUSED ALL THE TREATMENTS.MID LINE IS ON RIGHT UA,LEFT UPPER ARM AV SHUNT,SITE IS CLEAN,DRY AND INTACT.BED IS IN LOW POSITION AND LOCKED,CALL LIGHT IS WITHIN REACH.BED ALARM IS ON.WILL CONTINUE TO MONITOR THE PT CLOSELY.
[2018-10-17] MEDS: BLOOD SUGAR DIAGNOSTIC 1 EACH STRIP IN SCH ×4 (07:30→22:09)
--- NOTE | 2018-10-17 07:38 | NUR ---
STANDARDS ANALYST NOTES PT REFUSED TO CHECK THE BLOOD SUGAR.EXPLAINED THE RISK AND BENEFITS X3,STILL REFUSED.
[2018-10-17] MEDS: SEVELAMER CARBONATE 0.8 GM POWD.PACK PO SCH ×3 (08:00→17:00)
--- NOTE | 2018-10-17 08:00 | NUR ---
TOOL CLERK NOTES PT REFUSED TO CHECK VITAL SIGNS.EXPLAINED THE RISK AND BENEFITS X3,STILL REFUSED
[2018-10-17] MEDS: ACETYLCYSTEINE 10% SOLN 400 MG/4 ML VIAL NEB SCH ×3 (08:51→23:30)
[2018-10-17] MEDS: AMLODIPINE BESYLATE 10 MG TABLET PO SCH (08:56)
[2018-10-17] MEDS: hydrALAZINE HCL 50 MG TABLET PO SCH ×3 (08:56→17:00)
[2018-10-17] MEDS: ASPIRIN 81 MG TAB.CHEW PO SCH (08:56)
[2018-10-17] MEDS: NITROGLYCERIN 30 GM TUBE TP SCH ×2 (08:57→21:00)
[2018-10-17] MEDS: PAROXETINE HCL 10 MG TABLET PO SCH (08:57)
[2018-10-17] MEDS: DAKINS QUARTER STRENGTH (0.125%) 480 ML BOTTLE TOP SCH (08:57)
[2018-10-17] MEDS: NIFEdipine XL (30MG) 30 MG TAB PO SCH (08:57)
[2018-10-17] MEDS: PROSOURCE / PROSTAT (PYXIS) 30 ML UDC PO SCH ×2 (08:57→17:00)
--- NOTE | 2018-10-17 08:58 | NUR ---
NIB ADJUSTER NOTES PT REFUSED AM MEDS AND BREAKFAST.EXPLAINED THE RISK AND BENEFITS X3,STILL REFUSED.
--- NOTE | 2018-10-17 10:14 | NUR ---
SEWING MACHINE MAINTENANCE MECHANIC NOTES DR.QARNI CHAPARRO SEEN AND ASSESSED THE PT AND ORDERED ARTERIAL DUPLEX ON RIGHT UPPER EXTREMITY TO R/O DVT FOR SWELLING.NEW ORDERS NOTED AND CARRIED OUT.
--- NOTE | 2018-10-17 10:15 | NUR ---
QUALITY ASSURANCE ENGINEER NOTES PCP DR.SAM KRUEGER MADE AWARE ABOUT THE REFUSING BEHAVIOR OF ALL TREATMENTS,MEDICINES AND FOOD.
--- NOTE | 2018-10-17 12:33 | NUR ---
BARGAIN TABLE CLERK NOTES PT REFUSED TO HAVE NOON MEDICATIONS AND BLOOD SUGAR.DR.SAM Powell AND THE RESPONSIBLE [employer] PADMA QUICK,DAUGHTER MADE AWARE ABOUT THE REFUSING BEHAVIOR.SHE SAID SHE WILL LET US KNOW ABOUT THE PLAN FOR DISCHARGE.
--- NOTE | 2018-10-17 12:38 | NUR ---
BREWERY PUMPER NOTES PT REFUSED TO DO WOUND TREATMENT AND CONTINUALLY PLACING IN THE PULSE OXIMETER.EXPLAINED THE RISK AND BENEFITSX3.STILL REFUSED.
[2018-10-17 16:00] VITALS: BP 120/38
--- NOTE | 2018-10-17 17:32 | NUR ---
COATING AND BAKING OPERATOR NOTES PT STILL REFUSING THE WOUND TREATMENT AND PM MEDS.EXPLAINED THE RISK AND BENEFITSX3,STILL REFUSED.HE IS SAYING HE WANTS TO GO HOME AND HE DOESN'T WANT ANY TREATMENT.
--- NOTE | 2018-10-17 18:00 | NUR ---
BIOCHEMICAL DEVELOPMENT ENGINEER NOTES DAUGHTER PADMA QUICK CALLED AND SHE IS NOT AGREE TO DISCHARGE PT BY AMA PER ,SHE NEEDS TO TREAT THE PT BY THE DR.SHE SPOKE WITH PT AND PT MADE AWARE.CHARGE NURSE AND MADE AWARE.
--- NOTE | 2018-10-17 18:41 | NUR ---
TRANSPORTATION CLERK CLOSING NOTES PT IS IN SEMIFOWLERS POSITION ,EATING THE DINNER.NO S/S ASPIRATION NOTED.ALERT/ORIENTED X2.ON NC 5 L O2 CONTINUOUSLY,NO SOB AND ACUTE DISTRESS NOTED.STILL REFUSED TO PLACE CONTINUOS PULSE OXIMETER,MEDICATIONS AND WOUND TREATMENT.IV D10 NS IS RUNNING @75CC/HR IN RIGHT UPPER MIDLINE.SITE IS CLEAN,DRY AND INTACT.PT IS CLEAN AND DRY.RESPIRATION IS EVEN AND NONLABORED.ENDORSED TO FINISHING WIRE SAWYER RN ABOUT REFUSING BEHAVIOR AND LULI.
--- NOTE | 2018-10-17 19:40 | NUR ---
FOUNDRY MELT SUPERVISOR OPENING NOTES RECEIVED PT LYING ON BED,ALERT/ORIENTED X3.ON TELE HR IS 93 WITH SR.ON NC 5L O2 CONTINUOUSLY,NO SOB AND ACUTE DISTRESS NOTED.PT REFUSED ALL THE TREATMENTS AND V/S.MID LINE IS ON RIGHT UA,LEFT UPPER ARM AV SHUNT,SITE IS CLEAN,DRY AND INTACT.BED IS IN LOW POSITION AND LOCKED,CALL LIGHT IS WITHIN REACH.BED ALARM IS ON.WILL CONTINUE TO MONITOR THE PT CLOSELY.
--- NOTE | 2018-10-17 20:00 | NUR ---
HEALTH MANAGER NOTES PT REFUSED TO CHECK VITAL SIGNS.EXPLAINED THE RISK AND BENEFITS X3,STILL REFUSED.
--- NOTE | 2018-10-17 21:00 | NUR ---
OCCUPATIONAL HEALTH SPECIALIST NOTES PT REFUSED WOUND TREATMENT AND CONT. PULSE OXIMETER.EXPLAINED THE RISK AND BENEFITSX3.STILL REFUSED. PATIENT IS ASKING AMA FORM TO [employer] AND WANTS TO GO HOME. CALLED DAUGHTER PADMA QUICK [phone] AND SHE SAID SHE WILL COME TO PICK HIM UP. PATIENT IS AWARE OF HIS CONDITION AND HAS BEEN TOLD THAT HE NEEDS ANOTHER HD TOMORROW. ALL RISKS AND BENEFITS HAS BEEN EXPLAINED . PATIENT SIGNED AMA AND WILL BE LEAVING HOSPITAL WITH HIS DAUGHTER.
--- NOTE | 2018-10-17 21:00 | NUR ---
RN NOTES PATIENT'S BS IS 154 AND HE IS REFUSING INSULIN . HE IS REFUSING HYTRIN 2MG AT 2200 AND NITRO OINTMENT 1GM TP AT 2100. ALL RISKS AND BENEFITS HAS BEEN EXPLAINED . WILL CONTINUE TO MONITOR.
[2018-10-17] MEDS: TERAZOSIN HCL 1 MG CAPSULE PO SCH (22:00)
--- NOTE | 2018-10-17 23:15 | NUR ---
RN NOTES PATIENT SIGNED AMA AND IS LEAVING WITH HIS DAUGHTER HOME. IV LINE HAS BEEN REMOVED , WRIST BAND REMOVED, COMPLIANCE MONITOR REMOVED . PATIENT REFUSED TO [employer] BELONGING LIST BUT IT HAS BEEN CHECKED WITH VISHNU HARKINS PRIMARY RN AND PATIENT AT THE SAME TIME AND BELONGINGS SENT HOME WITH THE PATIENT. WILL TRANSFER PATIENT OUT FROM THE HOSPITAL WITH THE WHEELCHAIR WITH VISHNU HARKINS AND ARPAN.
--- NOTE | 2018-10-18 | NUR ---
RN NOTES AMA INCIDENT REPORT HAS BEEN FILED AND SAVED IN THE SYSTEM.
== END 2018-10-17 23:15 | disposition left against medical advice (07) | DRG 208 ==
LOC: TELE 10-06 00:16 → MED 10-07 10:25 → ICU 10-08 07:02 → TELE-TD 10-11 17:18 → TELE1 10-13 11:25 → ICU 10-14 08:20 → TELE-TD 10-15 18:34 → TELE1 10-16 11:30
PROVIDERS: ADMIT Nurse Practitioner Acute Care
PROC: 5A1945Z Respiratory Ventilation, 24-96 Consecutive Hours (ICD-10-PCS; principal; 2018-10-08)
PROC: 0BH17EZ Insertion of Endotracheal Airway into Trachea, Via Natural or Artificial Opening (ICD-10-PCS; 2018-10-08)
PROC: 5A1D70Z Performance of Urinary Filtration, Intermittent, Less than 6 Hours Per Day (ICD-10-PCS; 2018-10-08)
PROC: 0W9B3ZZ Drainage of Left Pleural Cavity, Percutaneous Approach (ICD-10-PCS; 2018-10-14)
PROC: 05H533Z Insertion of Infusion Device into Right Subclavian Vein, Percutaneous Approach (ICD-10-PCS; 2018-10-14)
PROC: 5A09357 Assistance with Respiratory Ventilation, Less than 24 Consecutive Hours, Continuous Positive Airway Pressure (ICD-10-PCS; 2018-10-14)
DX: J15.9 Unspecified bacterial pneumonia (principal); I21.4 Non-ST elevation (NSTEMI) myocardial infarction; E43 Unspecified severe protein-calorie malnutrition; N18.6 End stage renal disease; J96.01 Acute respiratory failure with hypoxia; I46.9 Cardiac arrest, cause unspecified; J96.02 Acute respiratory failure with hypercapnia; I13.2 Hypertensive heart and chronic kidney disease with heart failure and with stage 5 chronic kidney disease, or end stage renal disease; E87.1 Hypo-osmolality and hyponatremia; F33.9 Major depressive disorder, recurrent, unspecified; J98.11 Atelectasis; I31.9 Disease of pericardium, unspecified; L97.429 Non-pressure chronic ulcer of left heel and midfoot with unspecified severity; J90 Pleural effusion, not elsewhere classified; E87.5 Hyperkalemia; I50.9 Heart failure, unspecified; E11.22 Type 2 diabetes mellitus with diabetic chronic kidney disease; N18.9 Chronic kidney disease, unspecified; Z99.2 Dependence on renal dialysis; E11.42 Type 2 diabetes mellitus with diabetic polyneuropathy; E03.9 Hypothyroidism, unspecified; D63.1 Anemia in chronic kidney disease; D53.9 Nutritional anemia, unspecified; E83.39 Other disorders of phosphorus metabolism; F17.200 Nicotine dependence, unspecified, uncomplicated; R74.8 Abnormal levels of other serum enzymes; E88.09 Other disorders of plasma-protein metabolism, not elsewhere classified; Z68.23 Body mass index [BMI] 23.0-23.9, adult; L89.610 Pressure ulcer of right heel, unstageable; E11.51 Type 2 diabetes mellitus with diabetic peripheral angiopathy without gangrene; S90.822A Blister (nonthermal), left foot, initial encounter; S90.821A Blister (nonthermal), right foot, initial encounter; X58.XXXA Exposure to other specified factors, initial encounter; Y93.9 Activity, unspecified; Y92.009 Unspecified place in unspecified non-institutional (private) residence as the place of occurrence of the external cause; M62.50 Muscle wasting and atrophy, not elsewhere classified, unspecified site; Z91.19 Patient's noncompliance with other medical treatment and regimen; I35.0 Nonrheumatic aortic (valve) stenosis; N25.0 Renal osteodystrophy; E11.65 Type 2 diabetes mellitus with hyperglycemia; E11.649 Type 2 diabetes mellitus with hypoglycemia without coma; E11.621 Type 2 diabetes mellitus with foot ulcer
CPT/HCPCS: 31720; 36415; 36600; 71045-TC; 73630-TC; 74178; 76700-TC; 76942-TC; 80048-TC; 80053-TC; 80061-TC; 80076-TC; 82040-TC; 82728-TC; 82803-TC; 82962-TC; 83540-TC; 83735-TC; 84100-TC; 84439-TC; 84443-TC; 84484-TC; 85025-TC; 85730-TC; 86704; 86706; 87070-TC; 87075-TC; 87081-TC; 87102-TC; 87340; 88112-TC; 88305-TC; 88312-TC; 89051-TC; 90935-TC; 92526; 92611-TC; 92950-TC; 93307-TC; 93308-TC; 93930-TC; 94002-TC; 94003-TC; 94660; 94762-TC; 94799-TC; 97112-TC; 97530-TC; G0378; J1644; J1815; J2060; J2270; J2543; J3490; J7050; J7060; J7070; Q9967